=== PATIENT | female | born 1945 | race African-American/Black ===

== ENCOUNTER 2017-11-02 07:31 | Outpatient (CLI) | payer MEDICARE ==
--- NOTE | 2017-11-02 08:50 | ULT ---
RENAL SONOGRAM: History: Chronic renal disease. FINDINGS: Each kidney is 8.4 cm in length. There is no evidence of mass, stone, or hydronephrosis. Urinary blad ivonne is incompletely distended. IMPRESSION: 1. No evidence of urinary obstruction. 2. Normal renal sonogram. POS: [facility]
== END 2017-11-02 07:32 | disposition home or self-care (01) ==
LOC: ULT 07:31
PROVIDERS: ATTEND Internal Medicine Nephrology
DX: N18.4 Chronic kidney disease, stage 4 (severe) (principal)
CPT/HCPCS: 76770

== ENCOUNTER 2018-09-01 11:39 | Emergency (ER) | payer MEDICARE ==
--- NOTE | 2018-09-01 14:26 | RAD ---
TWO VIEW CHEST: History: Cough. FINDINGS: Lung gannon appear clear. No evidence of infiltrate. Heart and mediastinum unremarkable. IMPRESSION: No acute abnormality. POS: H
== END 2018-09-01 15:06 | disposition home or self-care (01) ==
LOC: ERS 11:39
DX: J20.9 Acute bronchitis, unspecified (principal); E11.9 Type 2 diabetes mellitus without complications; I10 Essential (primary) hypertension; N28.9 Disorder of kidney and ureter, unspecified
CPT/HCPCS: 71046

== ENCOUNTER 2018-12-21 14:32 | Outpatient (CLI) | payer MEDICARE ==
--- NOTE | 2018-12-21 15:04 | RAD ---
F2 views abdomen. HISTORY: Epigastric pain. Supine and upright views of the abdomen obtained. There is a patchy density seen in both lung bases compatible with bibasilar pneumonia. Correlate with PA and lateral views of the chest. The abdominal gas pattern is nonspecific. No evidence of obstruction or ileus seen. No dilated loops of bowel seen. Some areas of calcification appear to be over both kidneys. These may represent possible renal calcul i versus vascular calcifications. No dilated loops of bowel seen. No evidence of free intraperitoneal air seen. IMPRESSION: 1: Possible renal calculi versus calcifications over renal vessels. 2: Bilateral basilar areas of airspace opacities concerning for bibasilar pneumonia.
--- NOTE | 2018-12-21 15:13 | RAD ---
PA AND LATERAL VIEWS CHEST: HISTORY: Severe persistent reactive airways disease, bronchitis, dyspnea. FINDINGS: Comparison is made with the exam of 01/30/2018. The heart size is borderline. There are bibasilar infiltrates with accompanying effusions, right gre ater than left. No pneumothoraces are seen. The possibility of pneumonia should be considered. POS: [facility]
== END 2018-12-21 14:33 | disposition home or self-care (01) ==
LOC: BICRAD 14:32
PROVIDERS: ATTEND Internal Medicine
DX: J45.50 Severe persistent asthma, uncomplicated (principal); R10.13 Epigastric pain; R91.8 Other nonspecific abnormal finding of lung field
CPT/HCPCS: 71046; 74019

== ENCOUNTER 2018-12-29 20:03 | Inpatient (IN) | payer MEDICARE ==
--- NOTE | 2018-12-29 20:43 | RAD ---
ONE VIEW CHEST: 12/29/18 COMPARISON: 12/21/18 HISTORY: Patient was given antibiotics for pneumonia yesterday. Patient now having emesis. FINDINGS: Atherosclerosis of the aorta. Normal cardiac silhouette. Pulmonary vessels and hilum are normal. Impr poppy aeration of the lung parenchyma. Patchy interstitial opacities in the lung bases do remain along with areas of subsegmental atelectasis in the right lung. No pneumothorax. IMPRESSION: Improved aeration of the lung bases. Residual opacities remain. POS: [facility]
[2018-12-29] MEDS ORDERED: Ondansetron PF 4 MG/2 ML Vial ONE (21:05)
[2018-12-29 21:20] LABS: ALT (SGPT) 12 U/L (8-55); AST (SGOT) 14 U/L (5-34); Albumin 2.8 g/dL (3.4-4.8); Alkaline Phosphatase 65 U/L (40-150); Anion Gap 17 mmol/L (10-20); BUN (Urea Nitrogen) 64 mg/dL (9.8-20.1); Bilirubin, Total 0.3 mg/dL (0.2-1.2); Calc. Creatinine Clearance 0 mL/min (70-130); Carbon Dioxide 25 mmol/L (23-31); Chloride 98 mmol/L (98-107); Estimated GFR-MDRD 6; Globulin 3.6 g/dL (2.4-3.5); Glucose 205 mg/dL (83-110); Potassium 4.4 mmol/L (3.5-5.1); Protein, Total 6.4 g/dL (6.0-8.3); Sodium 136 mmol/L (136-145)
[2018-12-29 22:15] LABS: #Lymphocytes 0.6 thou/uL (1.20-3.40); #Monocytes 0.5 thou/uL (0.11-0.59); #Neutrophils 11.5 thou/uL (1.40-6.50); %Basophils 0.2 % (0.0-1.0); %Eosinophils 0.3 % (0.0-10.0); %Lymphocytes 4.9 % (21.0-51.0); %Monocytes 4.1 % (0.0-10.0); %Neutrophils 90.5 % (42.0-75.0); Hemoglobin 8.6 g/dL (12.0-16.0); Mean Corpuscular HGB CONC 31.6 g/dL (32.0-36.0); Mean Corpuscular Volume 72.8 fL (78.0-98.0); Mean Platelet Volume 11.2 fL (7.4-10.4); Platelet Count 244 thou/uL (130-400); RBC Distribution Width 15.2 % (11.5-14.5); Red Blood Cell (RBC) Count 3.72 mill/uL (4.20-5.40); White Blood Cell (WBC) Count 12.7 thou/uL (4.8-10.8)
[2018-12-29] MEDS ORDERED: hydrALAZINE 20 MG/ML VIAL ONE (22:25)
[2018-12-29] MEDS ORDERED: Aspirin Chewable 81 MG TAB ONE (22:25)
[2018-12-30 00:14] LABS: Troponin I 0.233 ng/mL (< 0.028)
[2018-12-30] MEDS ORDERED: Ondansetron PF 4 MG/2 ML Vial IVP PRN (01:19)
[2018-12-30] MEDS ORDERED: Acetaminophen 325 MG TAB PO PRN ×2 (01:19→01:27)
[2018-12-30] MEDS ORDERED: Sodium Chloride 0.9% 1,000 ML IV SCH ×2 (01:19→01:27)
[2018-12-30] MEDS ORDERED: Ondansetron ODT 4 MG TAB SL PRN (01:19)
[2018-12-30] MEDS ORDERED: Dextrose 5% in Water 1,000 ML IV PRN (01:27)
[2018-12-30] MEDS ORDERED: HumaLOG 300 UNITS/3 ML VIAL SC PRN ×2 (01:27)
[2018-12-30 01:57] VITALS: BMI 23.8
[2018-12-30] MEDS ORDERED: Furosemide 20 MG/2 ML VIAL SLOW IVP SCH (02:30)
[2018-12-30] MEDS: cloNIDine 0.1 MG TAB PO PRN ×2 (02:49→18:13)
[2018-12-30] MEDS: Sodium Chloride 0.9% 1,000 ML IV SCH ×2 (02:50→22:51)
[2018-12-30 03:22] LABS: #Basophils 0.1 thou/uL (0.0-0.2); #Eosinphils 0.2 thou/uL (0.0-0.7); #Lymphocytes 1.2 thou/uL (1.20-3.40); #Monocytes 0.6 thou/uL (0.11-0.59); #Neutrophils 9.6 thou/uL (1.40-6.50); %Basophils 0.6 % (0.0-1.0); %Eosinophils 1.7 % (0.0-10.0); %Lymphocytes 10.1 % (21.0-51.0); %Monocytes 5.2 % (0.0-10.0); %Neutrophils 82.5 % (42.0-75.0); Mean Corpuscular HGB CONC 32.1 g/dL (32.0-36.0); Mean Corpuscular Hemoglobin 23.1 pg (27.0-31.0); Mean Corpuscular Volume 72.1 fL (78.0-98.0); Platelet Count 236 thou/uL (130-400); RBC Distribution Width 14.8 % (11.5-14.5); Red Blood Cell (RBC) Count 3.44 mill/uL (4.20-5.40); White Blood Cell (WBC) Count 11.7 thou/uL (4.8-10.8)
--- NOTE | 2018-12-30 03:36 | HP ---
PRIMARY CARE PHYSICIAN: Vincent Wynne MD CHIEF COMPLAINT: Diarrhea. HISTORY OF PRESENT ILLNESS: Ms. Mcclain is a pleasant 73-year-old female, who has a history of hypertension, diabetes mellitus, and chronic kidney disease. She says that about a week ago, on last Wednesday, she was having some tightness in her epigastric area as well as decrease in appetite. Her primary care physician sent her to get x-rays of her abdomen. She says they called her back and told her that she has a pneumonia and called in two antibiotics for her to take, doxycycline and Augmentin. She says after taking just one dose of the antibiotics, she started having vomiting and diarrhea. She says that she had at least 4 to 5 episodes a day. This started around 3:00 a.m. in the morning. She also said she had some subjective fever and sweating at night. When she arrived in the emergency room , it was found that her blood pressure was extremely high at 234/102, and that her creatinine had gone up from a baseline of about 3, up to 7.7, and she also had an elevated troponin as well and for this reason, she is being admitted to the hospital. She admits that she has had a poor appetite for some time and she states that her combination technician, Dr. Kent, had began talking to her about the possible need for dialysis. The patient also states that her blood pressure typically always runs high despite being on medications. REVIEW OF SYSTEMS: All systems were reviewed and are negative except for that mentioned in the history of present illness. PAST MEDICAL HISTORY: Significant for diabetes mellitus for 47 years and she has type 1; hypertension for 20 years. She is anemic. She says she has a heart murmur and chronic kidney disease stage 4. PAST SURGICAL HISTORY: She has had a hysterectomy and foot surgery. ALLERGIES: TO PENICILLIN AND VICTOZA. SOCIAL HISTORY: She is . She has one child, a son, who lives in [place]. She is a nonsmoker and nondrinker. She lives by herself and her niece, Analilia, can act as a surrogate decision maker in addition to her son and she would like to be a full code. FAMILY HISTORY: Significant for diabetes mellitus type 2, heart disease, and hypertension. MEDICATIONS: Include; 1. Doxycycline. 2. Augmentin. 3. B12. 4. Vitamin D3. 5. NovoLog insulin on a sliding scale. 6. Lantus insulin 10 units in the morning, 5 in the evening. 7. Hydrochlorothiazide 12.5 mg daily. 8. Metoprolol extended release 50 mg daily. 9. Aspirin 81 mg a day. PHYSICAL EXAMINATION: GENERAL: She is alert and oriented. She appears to be in no acute distress. She is well developed and well nourished. VITAL SIGNS: Her blood pressure was 234/102, heart rate 93, respiratory rate of 20, and temperature is 99.5. HEENT: Her pupils are equal, round, and reactive. Extraocular muscles are intact. Her sclerae are anicteric. Throat, there is no erythema. No exudates. NECK: No adenopathy. No bruits. LUNGS: Clear to auscultation. There was no wheezing. No rales. No rhonchi. CARDIOVASCULAR: She has a normal S1, S2. A slight grade 2/6 systolic murmur over most of the precordium. No S3 or S4. ABDOMEN: Obese, it is soft, it is nontender, and nondistended. Positive for bowel sounds. No rebound or guarding. No organomegaly. EXTREMITIES: There is no clubbing or cyanosis. No edema. No joint effusions or erythema. NEUROLOGIC: Her cranial nerves 2 through 12 are grossly intact and muscle strength is 5/5 in her upper and lower extremities. SKIN AND INTEGUMENT: There are no skin changes except on her legs, the skin did seem a bit more leathery than the upper extremity and a bit dry. LABORATORY DATA: The lab results, the sodium is 136, potassium 4.4, chloride is 98, CO2 is 25, BUN of 64, creatinine of 7.7, glucose is 205. White blood cell count is 12.7, hemoglobin 8.6, hematocrit is 27.1, and platelet count was 244. She had a chest x-ray and it showed some cardiomegaly, some fluid in the fissures on the right, or this may be a scarring, but no significant airspace disease. ASSESSMENT: This is a pleasant 73-year-old female, who presents to the emergency room with diarrhea and vomiting, this is likely a side effect of the antibiotics ; however, this has left her with what appears to be some volume depletion resulting in acute renal failure. She is also noted to have an extremely elevated blood pressure as well as an elevated troponin, and it is concerning that the troponin elevation could represent an non-ST elevation myocardial infarction and her epigastric pain that she had several days ago may have been an anginal equivalent. 1. For the acute kidney injury, we will place her on gentle hydration, check urine electrolytes, and consult her combination technician for further recommendations. 2. Hypertensive urgency. We will restart her usual home medications plus add p.r.n. medicine, and likely we will add clonidine to her regimen. 3. Elevated troponin or non-ST elevation myocardial infarction. We will place her on some nitrates, aspirin, and continue her beta-danita, and consult Cardiology for further recommendations. We will also get an echocardiogram to assess her LV function. 4. Diabetes mellitus. Restart her insulin as well as the sliding scale. 5. Diarrhea. Will check stool for C. Difficile and Campylobacter. However again this is likely from antibiotics, especially Augmentin. Job ID: [id number] MTDD
[2018-12-30 03:45] LABS: Anion Gap 16 mmol/L (10-20); BUN (Urea Nitrogen) 65 mg/dL (9.8-20.1); Calc. Creatinine Clearance 6 mL/min (70-130); Calcium 6.8 mg/dL (7.8-10.44); Carbon Dioxide 24 mmol/L (23-31); Cardiac Risk 3.6 (Less than 4.5); Chloride 101 mmol/L (98-107); Cholesterol 164 mg/dl (< 200 Desired); Estimated GFR-MDRD 7; Glucose 147 mg/dL (83-110); HDL Cholesterol 46 mg/dL (>60 Neg Risk); LDL Cholesterol, Calculated 94 mg/dL; Potassium 3.9 mmol/L (3.5-5.1); Sodium 137 mmol/L (136-145); Triglycerides 119 mg/dL (Less than 150); Troponin I 0.179 ng/mL (< 0.028)
[2018-12-30] MEDS: Nitroglycerin 2% Ointment 1 INCH/1 GM Packet TOP SCH ×3 (05:25→21:02)
[2018-12-30] MEDS: hydrALAZINE 25 MG TAB PO SCH ×3 (08:25→21:01)
[2018-12-30] MEDS: Aspirin 325 mg Enteric Coated Tablet PO SCH (08:26)
[2018-12-30] MEDS: Heparin 5,000 UNITS/ML VIAL SC SCH ×3 (08:26→21:00)
[2018-12-30] MEDS: Metoprolol Tartrate 100 MG TAB PO SCH ×2 (08:26→21:01)
[2018-12-30] MEDS: Famotidine 20 MG TAB PO SCH (08:26)
[2018-12-30] MEDS: Furosemide 40 MG TAB PO SCH (08:26)
[2018-12-30] MEDS: Insulin Glargine 10 UNITS in Pre-Filled Syringe 1 EACH SC SCH (08:54)
--- NOTE | 2018-12-30 10:27 | CON ---
DATE OF CONSULTATION: REASON FOR CONSULTATION: Type 2 myocardial infarction. HISTORY OF PRESENT ILLNESS: Ms. Mcclain is a 73-year-old woman who recently presented with nausea, vomiting, in addition to fevers and chills. She states it began yesterday. She had 5 to 6 episodes of diarrhea. She again had associated vomiting. No chest tightness, pressure, or associated symptoms. She gives a history of having diabetes for the last 47 years. She has been followed by Dr. Wynne, her primary provider. [facility] a markedly elevated creatinine of 7. It was recommended that she proceed to the emergency room for volume resuscitation. She also had a mildly elevated troponin, likely due to current insult as described above. PAST MEDICAL HISTORY: Hypertension, diabetes mellitus, anemia, previous chronic kidney disease. ALLERGIES: PENICILLIN AND VICTOZA. SOCIAL HISTORY: She is currently , one child. No current tobacco or alcohol use. SURGICAL HISTORY: Hysterectomy, foot surgery. HOME MEDICATIONS: Include, 1. Augmentin. 2. Doxycycline. 3. B12. 4. NovoLog. 5. Lantus. 6. Hydrochlorothiazide. 7. Metoprolol. 8. Aspirin. REVIEW OF SYSTEMS: A 10-point review of systems is reviewed and as above, otherwise negative. PHYSICAL EXAMINATION: GENERAL: She does appear somewhat edematous. VITAL SIGNS: Blood pressure 188/88, pulse 92, temperature 99.8. NEUROLOGIC: The patient is alert and oriented x3 with no focal neurologic deficits. HEENT: Sclerae without icterus. Mouth has moist mucous membranes with normal pallor. NECK: No JVD. Carotid upstroke brisk. No bruits bilaterally. LUNGS: Clear to auscultation with unlabored respirations. BACK: No scoliosis or kyphosis. CARDIAC: Regular rate and rhythm with normal S1 and S2. No S3 or S4 noted. No significant rubs, murmurs, thrills, or gallops noted throughout the precordium. PMI is not displaced. There is no parasternal heave. ABDOMEN: Soft, nontender, nondistended. No peritoneal signs present. No hepatosplenomegaly. No abnormal striae. EXTREMITIES: 2+ femoral and 2+ dorsalis pedis pulses. No cyanosis, clubbing, or edema. SKIN: No gross abnormalities. PERTINENT LABORATORY DATA: White blood cell count 11.7, hemoglobin 8.0, hematocrit 24.8. . Sodium 137, potassium 3.9, BUN 65, creatinine 7.4. GFR 7. Peak troponin 0.2. Albumin 2.8, globulin 3.6. IMPRESSION: 1. Nausea, vomiting, diarrhea. 2. Type 2 myocardial infarction. 3. Acute on chronic kidney disease. 4. Recent fevers, chills. RECOMMENDATIONS: Ms. Mcclain's elevated troponin is secondary to type 2 myocardial infarction. This is not felt to be due to a ruptured plaque. At this point, recommend conservative therapy. She will be hydrated. Nephrology has been consulted. We would recommend reviewing her echo. If her echo appears to be within normal limits, we would likely follow up as an outpatient for further recommendations. We will avoid GAURAV inhibitor therapy and ARB. May benefit from low-dose beta-danita therapy. It is unlikely she has had a primary cardiac event with underlying fevers, chills, nausea, vomiting, and diarrhea. Job ID: [id number]
[2018-12-30 10:29] LABS: Creatinine, Urine 31.12 mg/dL (47-110)
--- NOTE | 2018-12-30 11:30 | ULT ---
RENAL ULTRASOUND: HISTORY: Acute renal insufficiency. FINDINGS: Real-time imaging of the right and left kidneys shows that the right kidney measured 9.5 and the left kidney 9.1 cm in size. No signs of cysts, mass, or obstruction. The bladder region appears unremarkable. IMPRESSION: Unremarkable renal ultrasound. POS: [facility]
--- NOTE | 2018-12-30 19:32 | PDOC.PN ---
- Subjective Encounter Start Date: 12/30/18 Encounter Start Time: 14:00 Pt seen for followup re: acute on chronic stage 4 kidney disease. Feels better. Denies chest pain. No vomiting. - Objective Resuscitation Status - Order Detail: 12/30/18 01:03 Resuscitation Status Routine Resuscitation Status: FULL: Full Resuscitation MAR Reviewed: Yes Vital Signs & Weight: Vital Signs (12 hours) Temp Pulse Resp BP BP Pulse Ox 12/30/18 18:13 189/88 H 12/30/18 16:00 98.9 F 72 17 189/88 H 98 12/30/18 14:10 76 186/88 H 12/30/18 12:00 98.0 F 76 18 170/84 H 99 12/30/18 08:25 94 12/30/18 08:00 99.8 F H 92 17 188/88 H 97 12/30/18 07:54 97 Weight Weight 130 lb 9.6 oz I&O: 12/29/18 12/30/18 12/31/18 06:59 06:59 06:59 Intake Total 405 1030 Output Total 800 Balance 405 230 Result Diagrams: 12/30/18 03:07 12/30/18 03:07 Additional Labs: Accuchecks 12/30/18 12/30/18 10:58 05:24 POC Glucose 159 H 151 H EKG Reviewed by me: Yes (Tele: NSR) Phys Exam - Physical Examination Constitutional: NAD HEENT: sclera anicteric, oral pharynx no lesions, 2+ tonsils Dry mucosae Neck: no nodes, no JVD, supple, full ROM Respiratory: clear to auscultation bilateral Cardiovascular: RRR, no rub S1, S2 Gastrointestinal: soft, non-tender, no distention, positive bowel sounds Neurological: moves all 4 limbs Psychiatric: normal affect, A&O x 3 Dx/Plan (1) Acute worsening of stage 4 chronic kidney disease Code(s): N18.4 - CHRONIC KIDNEY DISEASE, STAGE 4 (SEVERE) Status: Acute Comment: Likely prerenal. Hydrate patient, recheck (2) nstemi type 2 Status: Acute Comment: appreciate cardiology service input (3) HTN (hypertension) Code(s): I10 - ESSENTIAL (PRIMARY) HYPERTENSION Status: Chronic Comment: monitor vital signs, titrate antihypertensives as needed (4) DM type 2 (diabetes mellitus, type 2) Status: Chronic Comment: continue accuchecks, insulin sliding scale - Plan * . Review of Systems - Review of Systems Constitutional: negative: fever, chills, sweats, weakness, malaise Respiratory: negative: Cough, Shortness of Breath, SOB with Excertion, Pleuritic Pain, Wheezing Cardiovascular: negative: chest pain, palpitations, orthopnea, paroxysmal nocturnal dyspnea, edema, light headedness Gastrointestinal: Nausea. negative: Vomiting, Abdominal Pain, Diarrhea, Constipation, Melena, Hematochezia Genitourinary: negative: Dysuria, Frequency, Incontinence, Hematuria, Retention Musculoskeletal: negative: Neck Pain, Shoulder Pain, Arm Pain, Back Pain, Hand Pain, Leg Pain, Foot Pain - Medications/Allergies Allergies/Adverse Reactions: Allergies Allergy/AdvReac Type Severity Reaction Status Date / Time liraglutide [From Victoza] Allergy Verified 12/30/18 01:32 Penicillins Allergy Verified 12/30/18 01:32 Medications: Current Medications Acetaminophen (Tylenol) 650 mg PO Q4H PRN PRN Reason: Headache/Fever/Mild Pain (1-3) Aspirin (Ecotrin) 325 mg PO DAILY [facility] Last Admin: 12/30/18 08:26 Dose: 325 mg Clonidine (Catapres) 0.1 mg PO Q4H PRN PRN Reason: SBP > ____ Last Admin: 12/30/18 18:13 Dose: 0.1 mg Dextrose/Water (Dextrose 50%) 25 gm SLOW IVP PRN PRN PRN Reason: Hypoglycemia Famotidine (Pepcid) 20 mg PO DAILY [facility] Last Admin: 12/30/18 08:26 Dose: 20 mg Furosemide (Lasix) 40 mg PO DAILY [facility] Last Admin: 12/30/18 08:26 Dose: 40 mg Glucagon (Glucagon) 1 mg IM PRN PRN PRN Reason: Hypoglycemia Heparin Sodium (Porcine) (Heparin) 5,000 units SC TID [facility] Last Admin: 12/30/18 14:11 Dose: 5,000 units Hydralazine HCl (Apresoline) 10 mg SLOW IVP Q4H PRN PRN Reason: SBP > 180 and HR < 70 Hydralazine HCl (Apresoline) 25 mg PO TID [facility] Last Admin: 12/30/18 14:10 Dose: 25 mg Dextrose/Water (D5w) 1,000 mls @ 0 mls/hr IV .Q0M PRN PRN Reason: Hypoglycemia Sodium Chloride (Normal Saline 0.9%) 1,000 mls @ 55 mls/hr IV .[id number] [facility] Last Admin: 12/30/18 02:50 Dose: 1,000 mls Insulin Glargine 5 units/ (Miscellaneous Medication) 0.05 mls @ 0 mls/hr SC HS [facility] Insulin Glargine 10 units/ (Miscellaneous Medication) 0.1 mls @ 0 mls/hr SC QAM -WM [facility] Last Admin: 12/30/18 08:54 Dose: 0.1 mls Insulin Human Lispro (Humalog) 0 units SC .MODERATE SLIDING SC PRN PRN Reason: Moderate Correctional Scale Insulin Human Lispro (Humalog) 0 units SC .BEDTIME SLIDING SC PRN PRN Reason: Bedtime Correctional Scale Metoprolol Tartrate (Lopressor) 100 mg PO BID [facility] Last Admin: 12/30/18 08:26 Dose: 100 mg Nitroglycerin (Nitro-Bid 2% Ointment) 0.5 inch TOP Q8HR [facility] Last Admin: 12/30/18 14:11 Dose: 0.5 inch Sodium Chloride (Flush - Normal Saline) 10 ml IVF Q12HR [facility] Last Admin: 12/30/18 08:26 Dose: Not Given Sodium Chloride (Flush - Normal Saline) 10 ml IVF PRN PRN PRN Reason: Saline Flush
[2018-12-30] MEDS ORDERED: Insulin Glargine 5 UNITS in Pre-Filled Syringe 1 EACH SC SCH (21:00)
--- NOTE | 2018-12-30 22:05 | CON ---
DATE OF CONSULTATION: 12/30/2018 CONSULTING PHYSICIAN: Kervin Macedo MD REASON FOR CONSULTATION: Acute kidney injury. REASON FOR ADMISSION: Diarrhea. HISTORY OF PRESENT ILLNESS: This is a 73-year-old female with history of chronic kidney disease, type 2 diabetes, hypertension, who came to the hospital with above complaints and was found to have elevated creatinine. Her creatinine baseline is at 3.2 and 3.8 and was found to have 7.7. Nephrology consulted. The patient is followed by Dr. Kent. No fevers or chills. The patient has been complaining of nausea, vomiting, and diarrhea. No chest pain or palpitation. PAST MEDICAL HISTORY: Type 2 diabetes, hypertension, chronic kidney disease. PAST SURGICAL HISTORY: Hysterectomy, foot surgery. HOME MEDICATIONS: 1. Doxycycline. 2. Augmentin. 3. B12. 4. Vitamin D3. 5. NovoLog. 6. Lantus. 7. Hydrochlorothiazide. 8. Metoprolol. 9. Aspirin. ALLERGIES: PENICILLIN AND LIRAGLUTIDE. FAMILY HISTORY: No significant disease. REVIEW OF SYSTEMS: CONSTITUTIONAL: Negative for weight loss or gain, ability to conduct usual activities. SKIN: Negative for rash, itching. EYES: Negative for double vision, pain. ENT/MOUTH: Negative for nose bleeding, neck stiffness, pain, tenderness. CARDIOVASCULAR: Negative for palpitations, dyspnea on exertion, orthopnea. RESPIRATORY: Negative for shortness of breath, wheezing, cough, hemoptysis, fever or night sweats. GASTROINTESTINAL: Negative for poor appetite, abdominal pain, heartburn, nausea, vomiting, constipation, or diarrhea. GENITOURINARY: Negative for urgency, frequency, dysuria, nocturia. MUSCULOSKELETAL: Negative for pain, swelling. NEUROLOGIC/PSYCHIATRIC: Negative for anxiety, depression. ALLERGY/IMMUNOLOGIC: Negative for skin rash, bleeding tendency. PHYSICAL EXAMINATION: GENERAL: A well-built female, in no apparent distress. VITAL SIGNS: Temperature 98.5, pulse 75, respiratory rate 18, blood pressure 170/84. HEENT: Atraumatic, normocephalic. Oral mucosa is moist. NECK: Supple. CV: S1 and S2 heard. Rate and rhythm regular. RESPIRATORY: Clear. ABDOMEN: Soft. MUSCULOSKELETAL: 1+ edema. DERMATOLOGIC: No skin rash. NEUROLOGIC: Alert and awake. LABORATORY DATA: Hemoglobin is 8.0. Potassium is 3.9, BUN is 65, creatinine 7.4. Renal ultrasound with no hydronephrosis. Urinalysis, severe proteinuria. ASSESSMENT AND PLAN: 1. Acute kidney injury on chronic kidney disease stage 4. No acute indication for dialysis. We will monitor. Agree with hydration and avoid nephrotoxins. If no improvement, might need start renal replacement. Patient is interested in peritoneal dialysis at home. 2. Anemia, most likely chronic. 3. Edema. 4. Hypertension. 5. Proteinuria. 6. History of diabetes. 7. Continue supportive care including IV hydration, avoid nephrotoxins, and no acute indication for dialysis, but if no significant improvement in renal function, we will consider renal replacement therapy to be initiated during this admission. Thank you for the consult. We will follow. Job ID: [id number]
[2018-12-31] MEDS: Sodium Chloride 0.9% 1,000 ML IV SCH (03:19)
[2018-12-31] MEDS: cloNIDine 0.1 MG TAB PO PRN ×2 (03:46→20:01)
[2018-12-31] MEDS: Dextrose 50% Abboject 50 ML SYRINGE SLOW IVP PRN (05:00)
[2018-12-31] MEDS: Nitroglycerin 2% Ointment 1 INCH/1 GM Packet TOP SCH (05:09)
[2018-12-31] MEDS: hydrALAZINE 20 MG/ML VIAL SLOW IVP PRN (05:57)
[2018-12-31] MEDS: Aspirin 325 mg Enteric Coated Tablet PO SCH (09:33)
[2018-12-31] MEDS: Famotidine 20 MG TAB PO SCH (09:33)
[2018-12-31] MEDS: Furosemide 40 MG TAB PO SCH (09:33)
[2018-12-31] MEDS: hydrALAZINE 25 MG TAB PO SCH ×3 (09:33→20:02)
[2018-12-31] MEDS: Heparin 5,000 UNITS/ML VIAL SC SCH ×3 (09:33→20:06)
[2018-12-31] MEDS: Metoprolol Tartrate 100 MG TAB PO SCH ×2 (09:33→20:02)
[2018-12-31] MEDS: Insulin Glargine 10 UNITS in Pre-Filled Syringe 1 EACH SC SCH (09:33)
--- NOTE | 2018-12-31 11:18 | PRG ---
DATE OF SERVICE: 12/31/2018 SUBJECTIVE: Patient was seen and examined at bedside and overnight events noted. Patient denies any shortness of breath or chest pain or palpitation. No history of nausea or vomiting or diarrhea or fever or chills or cramps. OBJECTIVE: GENERAL: This is a well-built female, in no acute distress. VITAL SIGNS: Temperature 97.9. Heart rate 67. Respiratory rate 18. Blood pressure 162/73. HEENT: Atraumatic, normocephalic. Oral mucosa is moist NECK: Supple. CARDIOVASCULAR: S1, S2 heard. Rate and rhythm regular. RESPIRATORY: Clear to auscultation. GASTROINTESTINAL: Abdomen is soft. MUSCULOSKELETAL: No tenderness. No edema. DERMATOLOGIC: No skin rash. NEUROLOGIC: Alert and awake and oriented X3. No focal neurologic deficits. Moving all the extremities. PSYCHIATRIC: Mood and affect normal. LABORATORY DATA: Not done today. ASSESSMENT AND PLAN: 1. Acute kidney injury on chronic kidney, stage 4. Repeat labs and monitor. 2. Anemia, chronic. 3. Edema. Limit fluid intake. 4. Hypertension. 5. Proteinuria. 6. History of diabetes. Immunological labs are pending. We will monitor. Job ID: [id number]
[2018-12-31 12:42] LABS: #Basophils 0.1 thou/uL (0.0-0.2); #Eosinphils 0.2 thou/uL (0.0-0.7); #Lymphocytes 1.3 thou/uL (1.20-3.40); #Monocytes 0.5 thou/uL (0.11-0.59); #Neutrophils 4.7 thou/uL (1.40-6.50); %Basophils 1.3 % (0.0-1.0); %Eosinophils 2.5 % (0.0-10.0); %Lymphocytes 19.6 % (21.0-51.0); %Monocytes 7.3 % (0.0-10.0); %Neutrophils 69.3 % (42.0-75.0); Hemoglobin 7.3 g/dL (12.0-16.0); Mean Corpuscular HGB CONC 31.7 g/dL (32.0-36.0); Mean Corpuscular Hemoglobin 23.2 pg (27.0-31.0); Mean Corpuscular Volume 73.2 fL (78.0-98.0); Platelet Count 221 thou/uL (130-400); Red Blood Cell (RBC) Count 3.15 mill/uL (4.20-5.40); White Blood Cell (WBC) Count 6.7 thou/uL (4.8-10.8)
[2018-12-31] MEDS ORDERED: Amlodipine 5 MG TAB PO SCH (13:00)
[2018-12-31 13:07] LABS: Anion Gap 17 mmol/L (10-20); BUN (Urea Nitrogen) 67 mg/dL (9.8-20.1); Calc. Creatinine Clearance 7 mL/min (70-130); Calcium 6.7 mg/dL (7.8-10.44); Carbon Dioxide 20 mmol/L (23-31); Chloride 102 mmol/L (98-107); Estimated GFR-MDRD 7; Glucose 131 mg/dL (83-110); Sodium 135 mmol/L (136-145)
--- NOTE | 2018-12-31 13:21 | PDOC.CTH ---
Cardiology Progress Note - Subjective No complaints. Denies any CP, SOB, MORALES or palpitations. - Objective Vital Signs Temp Pulse Resp BP BP Pulse Ox 12/31/18 12:00 98.1 F 66 161/72 H 97 12/31/18 09:33 68 12/31/18 08:00 97.8 F 67 18 162/73 H 96 12/31/18 06:35 68 174/79 H 12/31/18 05:57 64 179/84 H 12/31/18 05:13 67 177/78 H 12/31/18 04:00 98.4 F 69 20 193/84 H 97 12/31/18 03:46 193/84 H Weight 137 lb 8 oz 12/30/18 12/31/18 01/01/19 06:59 06:59 06:59 Intake Total 405 2090 Output Total 1250 Balance 405 840 - Physical Examination General/Neuro: alert & oriented x3 Neck: no JVD present Lungs: CTA Heart: RRR Abdomen: NT/ND - Telemetry Telemetry Rhythm: SR - Labs Result Diagrams: 12/31/18 12:27 12/31/18 12:27 Troponin/CKMB CK-MB (CK-2) 3.0 ng/mL (0-6.6) 12/29/18 20:40 Troponin I 0.179 ng/mL (< 0.028) H 12/30/18 03:07 - Assessment/Plan 1. NSTEMI - 2 2. JESUS/CKD 3. HTN 4. Anemia of chronic disease Add Norvasc for BP. Continue bblocker and ASA.
--- NOTE | 2018-12-31 13:35 | PDOC.PN ---
- Subjective Encounter Start Date: 12/31/18 Encounter Start Time: 08:00 Pt seen for followup re: acute on chronic renal failure. No complaints today. - Objective Resuscitation Status - Order Detail: 12/30/18 01:03 Resuscitation Status Routine Resuscitation Status: FULL: Full Resuscitation Vital Signs & Weight: Vital Signs (12 hours) Temp Pulse Resp BP BP Pulse Ox 12/31/18 12:00 98.1 F 66 161/72 H 97 12/31/18 09:33 68 12/31/18 08:00 97.8 F 67 18 162/73 H 96 12/31/18 06:35 68 174/79 H 12/31/18 05:57 64 179/84 H 12/31/18 05:13 67 177/78 H 12/31/18 04:00 98.4 F 69 20 193/84 H 97 12/31/18 03:46 193/84 H Weight Weight 137 lb 8 oz I&O: 12/30/18 12/31/18 01/01/19 06:59 06:59 06:59 Intake Total 405 2090 Output Total 1250 Balance 405 840 Result Diagrams: 12/31/18 12:27 12/31/18 12:27 Additional Labs: Accuchecks 12/31/18 12/31/18 12/31/18 11:16 05:17 05:01 POC Glucose 123 H 233 H 48 L* 12/31/18 12/30/18 03:51 20:26 POC Glucose 44 L* 163 H Phys Exam - Physical Examination Constitutional: NAD HEENT: moist MMs Neck: supple Respiratory: clear to auscultation bilateral Cardiovascular: RRR Gastrointestinal: soft Neurological: moves all 4 limbs Psychiatric: normal affect Dx/Plan (1) Acute worsening of stage 4 chronic kidney disease Code(s): N18.4 - CHRONIC KIDNEY DISEASE, STAGE 4 (SEVERE) Status: Acute Comment: creatinine stabilizing, 7.45 today (2) nstemi type 2 Status: Acute Comment: stable (3) HTN (hypertension) Code(s): I10 - ESSENTIAL (PRIMARY) HYPERTENSION Status: Chronic Comment: amlodipine added today (4) DM type 2 (diabetes mellitus, type 2) Status: Chronic Comment: overnight hypoglycemia, stop PM dose of lantus and follow accuchecks - Plan * . Review of Systems - Review of Systems Respiratory: negative: Cough, Shortness of Breath, SOB with Excertion, Pleuritic Pain, Wheezing Cardiovascular: negative: chest pain, palpitations, orthopnea, paroxysmal nocturnal dyspnea, edema, light headedness - Medications/Allergies Allergies/Adverse Reactions: Allergies Allergy/AdvReac Type Severity Reaction Status Date / Time liraglutide [From Victoza] Allergy Verified 12/30/18 01:32 Penicillins Allergy Verified 12/30/18 01:32 Medications: Current Medications Acetaminophen (Tylenol) 650 mg PO Q4H PRN PRN Reason: Headache/Fever/Mild Pain (1-3) Amlodipine Besylate (Norvasc) 5 mg PO DAILY [facility] Amlodipine Besylate (Norvasc) 5 mg PO NOW [facility] Stop: 12/31/18 16:00 Aspirin (Ecotrin) 325 mg PO DAILY [facility] Last Admin: 12/31/18 09:33 Dose: 325 mg Clonidine (Catapres) 0.1 mg PO Q4H PRN PRN Reason: SBP > ____ Last Admin: 12/31/18 03:46 Dose: 0.1 mg Dextrose/Water (Dextrose 50%) 25 gm SLOW IVP PRN PRN PRN Reason: Hypoglycemia Last Admin: 12/31/18 05:00 Dose: 25 gm Famotidine (Pepcid) 20 mg PO DAILY [facility] Last Admin: 12/31/18 09:33 Dose: 20 mg Furosemide (Lasix) 40 mg PO DAILY [facility] Last Admin: 12/31/18 09:33 Dose: 40 mg Glucagon (Glucagon) 1 mg IM PRN PRN PRN Reason: Hypoglycemia Heparin Sodium (Porcine) (Heparin) 5,000 units SC TID [facility] Last Admin: 12/31/18 09:33 Dose: 5,000 units Hydralazine HCl (Apresoline) 10 mg SLOW IVP Q4H PRN PRN Reason: SBP > 180 and HR < 70 Last Admin: 12/31/18 05:57 Dose: 10 mg Hydralazine HCl (Apresoline) 25 mg PO TID [facility] Last Admin: 12/31/18 09:33 Dose: 25 mg Dextrose/Water (D5w) 1,000 mls @ 0 mls/hr IV .Q0M PRN PRN Reason: Hypoglycemia Sodium Chloride (Normal Saline 0.9%) 1,000 mls @ 55 mls/hr IV .[id number] [facility] Last Admin: 12/31/18 03:19 Dose: 1,000 mls Insulin Glargine 5 units/ (Miscellaneous Medication) 0.05 mls @ 0 mls/hr SC HS [facility] Last Admin: 12/30/18 21:02 Dose: 0.05 mls Insulin Glargine 10 units/ (Miscellaneous Medication) 0.1 mls @ 0 mls/hr SC QAM -WM [facility] Last Admin: 12/31/18 09:33 Dose: Not Given Insulin Human Lispro (Humalog) 0 units SC .MODERATE SLIDING SC PRN PRN Reason: Moderate Correctional Scale Insulin Human Lispro (Humalog) 0 units SC .BEDTIME SLIDING SC PRN PRN Reason: Bedtime Correctional Scale Metoprolol Tartrate (Lopressor) 100 mg PO BID [facility] Last Admin: 12/31/18 09:33 Dose: 100 mg Sodium Chloride (Flush - Normal Saline) 10 ml IVF Q12HR [facility] Last Admin: 12/31/18 09:34 Dose: Not Given Sodium Chloride (Flush - Normal Saline) 10 ml IVF PRN PRN PRN Reason: Saline Flush
[2019-01-01] MEDS: cloNIDine 0.1 MG TAB PO PRN ×2 (01:32→20:24)
[2019-01-01 05:09] LABS: #Basophils 0.1 thou/uL (0.0-0.2); #Eosinphils 0.3 thou/uL (0.0-0.7); #Lymphocytes 1.6 thou/uL (1.20-3.40); #Monocytes 0.5 thou/uL (0.11-0.59); #Neutrophils 4.3 thou/uL (1.40-6.50); %Basophils 1.4 % (0.0-1.0); %Eosinophils 4.2 % (0.0-10.0); %Lymphocytes 24.1 % (21.0-51.0); %Monocytes 6.9 % (0.0-10.0); %Neutrophils 63.4 % (42.0-75.0); Hemoglobin 6.9 g/dL (12.0-16.0); Mean Corpuscular HGB CONC 31.6 g/dL (32.0-36.0); Mean Corpuscular Hemoglobin 23.3 pg (27.0-31.0); Mean Corpuscular Volume 73.8 fL (78.0-98.0); Mean Platelet Volume 11.3 fL (7.4-10.4); Platelet Count 227 thou/uL (130-400); RBC Distribution Width 14.8 % (11.5-14.5); Red Blood Cell (RBC) Count 2.95 mill/uL (4.20-5.40); White Blood Cell (WBC) Count 6.7 thou/uL (4.8-10.8)
[2019-01-01 05:29] LABS: Anion Gap 17 mmol/L (10-20); BUN (Urea Nitrogen) 66 mg/dL (9.8-20.1); Calc. Creatinine Clearance 7 mL/min (70-130); Calcium 6.4 mg/dL (7.8-10.44); Carbon Dioxide 18 mmol/L (23-31); Chloride 101 mmol/L (98-107); Estimated GFR-MDRD 7; Glucose 96 mg/dL (83-110); Sodium 132 mmol/L (136-145)
[2019-01-01] MEDS: Sodium Chloride 0.9% 1,000 ML IV SCH (06:40)
[2019-01-01] MEDS: Metoprolol Tartrate 100 MG TAB PO SCH ×2 (08:21→20:24)
[2019-01-01] MEDS: Heparin 5,000 UNITS/ML VIAL SC SCH ×3 (08:21→20:26)
[2019-01-01] MEDS: Famotidine 20 MG TAB PO SCH (08:21)
[2019-01-01] MEDS: Aspirin 325 mg Enteric Coated Tablet PO SCH (08:21)
[2019-01-01] MEDS: Furosemide 40 MG TAB PO SCH (08:21)
[2019-01-01] MEDS: hydrALAZINE 25 MG TAB PO SCH ×3 (08:21→20:25)
[2019-01-01] MEDS: Insulin Glargine 10 UNITS in Pre-Filled Syringe 1 EACH SC SCH (08:22)
[2019-01-01] MEDS ORDERED: Amlodipine 5 MG TAB PO SCH (09:00)
--- NOTE | 2019-01-01 10:59 | PDOC.CTH ---
Cardiology Progress Note - Subjective No overnight events. No CP, SOB. Breathing stable. - Objective Vital Signs Temp Pulse Resp BP BP Pulse Ox 01/01/19 08:21 65 01/01/19 08:00 98.1 F 64 18 178/81 H 97 01/01/19 07:42 97 01/01/19 04:45 98.0 F 65 20 161/73 H 99 01/01/19 01:32 178/80 H 01/01/19 00:05 98.1 F 64 16 178/80 H 96 Weight 136 lb 11.2 oz 12/31/18 01/01/19 01/02/19 06:59 06:59 06:59 Intake Total 2090 2253 Output Total 1250 400 Balance 840 1853 - Physical Examination General/Neuro: alert & oriented x3 Neck: no JVD present Lungs: CTA Heart: RRR Abdomen: NT/ND - Telemetry Telemetry Rhythm: SR - Labs Result Diagrams: 01/01/19 04:35 01/01/19 04:35 Troponin/CKMB CK-MB (CK-2) 3.0 ng/mL (0-6.6) 12/29/18 20:40 Troponin I 0.179 ng/mL (< 0.028) H 12/30/18 03:07 - Assessment/Plan 1. NSTEMI - 2 2. JESUS/CKD 3. HTN 4. Anemia of chronic disease Increase Norvasc to BID. Otherwise continue ASA, bblocker.
--- NOTE | 2019-01-01 12:03 | PRG ---
DATE OF SERVICE: 01/01/2019 SUBJECTIVE: Patient was seen and examined at bedside and overnight events noted. Patient denies any shortness of breath or chest pain or palpitation. No history of nausea or vomiting or diarrhea or fever or chills or cramps. OBJECTIVE: GENERAL: This is a well-built female, in no acute distress. VITAL SIGNS: Temperature . Heart rate 64. Respiratory rate 18. Blood pressure 170/81. HEENT: Atraumatic, normocephalic. Oral mucosa is moist. NECK: Supple. CARDIOVASCULAR: S1, S2 heard. Rate and rhythm regular. RESPIRATORY: Clear to auscultation. GASTROINTESTINAL: Abdomen is soft. MUSCULOSKELETAL: No tenderness. No edema. DERMATOLOGIC: No skin rash. NEUROLOGIC: Alert and awake and oriented x3. No focal neurologic deficits. Moving all the extremities. PSYCHIATRIC: Mood and affect normal. LABORATORY DATA: Potassium is 4.0, BUN is 66, and creatinine is 7.2. ASSESSMENT AND PLAN: 1. Chronic kidney disease, stage 5, with no significant improvement. It seems like the patient is progressing towards dialysis. I did have a discussion with her. If the patient wants to talk to her family and is also thinking about moving to dialysis close to her family while starting dialysis. Plan is to consult Surgery if the patient wants to stay here. Otherwise, follow with clinical nursing intern within a week and dialysis. 2. Anemia. 3. Edema. 4. Hypertension. 5. Proteinuria. 6. History of diabetes. Follow up with the family for further plans on starting dialysis. Job ID: [id number]
--- NOTE | 2019-01-01 14:46 | PDOC.PN ---
- Subjective Encounter Start Date: 01/01/19 Encounter Start Time: 08:20 Pt seen for followup re; acute on chronic renal failure. No complaints. - Objective Resuscitation Status - Order Detail: 12/30/18 01:03 Resuscitation Status Routine Resuscitation Status: FULL: Full Resuscitation MAR Reviewed: Yes Vital Signs & Weight: Vital Signs (12 hours) Temp Pulse Resp BP Pulse Ox 01/01/19 12:00 97.6 F 65 17 139/65 97 01/01/19 08:21 65 01/01/19 08:00 98.1 F 64 18 178/81 H 97 01/01/19 07:42 97 01/01/19 04:45 98.0 F 65 20 161/73 H 99 Weight Weight 136 lb 11.2 oz I&O: 12/31/18 01/01/19 01/02/19 06:59 06:59 06:59 Intake Total 2090 2253 Output Total 1250 400 Balance 840 1853 Result Diagrams: 01/01/19 04:35 01/01/19 04:35 Additional Labs: Accuchecks 01/01/19 01/01/19 12/31/18 11:13 06:01 16:55 POC Glucose 166 H 114 H 157 H EKG Reviewed by me: Yes (Tele: NSR) Phys Exam - Physical Examination Constitutional: NAD HEENT: moist MMs Neck: supple Respiratory: clear to auscultation bilateral Cardiovascular: RRR Gastrointestinal: soft Neurological: moves all 4 limbs Psychiatric: normal affect Dx/Plan (1) Acute worsening of stage 4 chronic kidney disease Code(s): N18.4 - CHRONIC KIDNEY DISEASE, STAGE 4 (SEVERE) Status: Acute Comment: creatinine stabilizing, may need dialysis (2) nstemi type 2 Status: Acute Comment: stable (3) HTN (hypertension) Code(s): I10 - ESSENTIAL (PRIMARY) HYPERTENSION Status: Chronic Comment: BP improved (4) DM type 2 (diabetes mellitus, type 2) Status: Chronic Comment: overnight hypoglycemia, stop PM dose of lantus and follow accuchecks - Plan * . Review of Systems - Review of Systems Respiratory: negative: Cough, Shortness of Breath, SOB with Excertion, Pleuritic Pain, Wheezing Cardiovascular: negative: chest pain, palpitations, orthopnea, paroxysmal nocturnal dyspnea, edema, light headedness - Medications/Allergies Allergies/Adverse Reactions: Allergies Allergy/AdvReac Type Severity Reaction Status Date / Time liraglutide [From Victoza] Allergy Verified 12/30/18 01:32 Penicillins Allergy Verified 12/30/18 01:32 Medications: Current Medications Acetaminophen (Tylenol) 650 mg PO Q4H PRN PRN Reason: Headache/Fever/Mild Pain (1-3) Amlodipine Besylate (Norvasc) 5 mg PO BID [facility] Aspirin (Ecotrin) 325 mg PO DAILY [facility] Last Admin: 01/01/19 08:21 Dose: 325 mg Clonidine (Catapres) 0.1 mg PO Q4H PRN PRN Reason: SBP > ____ Last Admin: 01/01/19 01:32 Dose: 0.1 mg Dextrose/Water (Dextrose 50%) 25 gm SLOW IVP PRN PRN PRN Reason: Hypoglycemia Last Admin: 12/31/18 05:00 Dose: 25 gm Famotidine (Pepcid) 20 mg PO DAILY [facility] Last Admin: 01/01/19 08:21 Dose: 20 mg Furosemide (Lasix) 40 mg PO DAILY [facility] Last Admin: 01/01/19 08:21 Dose: 40 mg Glucagon (Glucagon) 1 mg IM PRN PRN PRN Reason: Hypoglycemia Heparin Sodium (Porcine) (Heparin) 5,000 units SC TID [facility] Last Admin: 01/01/19 08:21 Dose: 5,000 units Hydralazine HCl (Apresoline) 10 mg SLOW IVP Q4H PRN PRN Reason: SBP > 180 and HR < 70 Last Admin: 12/31/18 05:57 Dose: 10 mg Hydralazine HCl (Apresoline) 25 mg PO TID [facility] Last Admin: 01/01/19 08:21 Dose: 25 mg Dextrose/Water (D5w) 1,000 mls @ 0 mls/hr IV .Q0M PRN PRN Reason: Hypoglycemia Sodium Chloride (Normal Saline 0.9%) 1,000 mls @ 55 mls/hr IV .[id number] [facility] Last Admin: 01/01/19 06:40 Dose: 1,000 mls Insulin Glargine 10 units/ (Miscellaneous Medication) 0.1 mls @ 0 mls/hr SC QAM -WM [facility] Last Admin: 01/01/19 08:22 Dose: 0.1 mls Insulin Human Lispro (Humalog) 0 units SC .MODERATE SLIDING SC PRN PRN Reason: Moderate Correctional Scale Insulin Human Lispro (Humalog) 0 units SC .BEDTIME SLIDING SC PRN PRN Reason: Bedtime Correctional Scale Last Admin: 12/31/18 21:34 Dose: 2 unit Metoprolol Tartrate (Lopressor) 100 mg PO BID [facility] Last Admin: 01/01/19 08:21 Dose: 100 mg Sodium Chloride (Flush - Normal Saline) 10 ml IVF Q12HR [facility] Last Admin: 01/01/19 08:22 Dose: Not Given Sodium Chloride (Flush - Normal Saline) 10 ml IVF PRN PRN PRN Reason: Saline Flush
[2019-01-01] MEDS: Amlodipine 5 MG TAB PO SCH (20:25)
[2019-01-02] MEDS: Sodium Chloride 0.9% 1,000 ML IV SCH (01:21)
[2019-01-02] MEDS: Dextrose 50% Abboject 50 ML SYRINGE SLOW IVP PRN (03:59)
[2019-01-02] MEDS: hydrALAZINE 20 MG/ML VIAL SLOW IVP PRN (04:05)
[2019-01-02 05:56] LABS: #Basophils 0.1 thou/uL (0.0-0.2); #Eosinphils 0.2 thou/uL (0.0-0.7); #Lymphocytes 0.8 thou/uL (1.20-3.40); #Monocytes 0.3 thou/uL (0.11-0.59); #Neutrophils 4.5 thou/uL (1.40-6.50); %Basophils 1.2 % (0.0-1.0); %Eosinophils 2.6 % (0.0-10.0); %Monocytes 4.8 % (0.0-10.0); %Neutrophils 77.4 % (42.0-75.0); Hemoglobin 8.6 g/dL (12.0-16.0); Mean Corpuscular HGB CONC 31.3 g/dL (32.0-36.0); Mean Corpuscular Volume 73.5 fL (78.0-98.0); Mean Platelet Volume 11.6 fL (7.4-10.4); Platelet Count 292 thou/uL (130-400); RBC Distribution Width 15.2 % (11.5-14.5); Red Blood Cell (RBC) Count 3.75 mill/uL (4.20-5.40); White Blood Cell (WBC) Count 5.9 thou/uL (4.8-10.8)
[2019-01-02 06:14] LABS: Anion Gap 19 mmol/L (10-20); BUN (Urea Nitrogen) 67 mg/dL (9.8-20.1); Calc. Creatinine Clearance 7 mL/min (70-130); Calcium 6.8 mg/dL (7.8-10.44); Carbon Dioxide 18 mmol/L (23-31); Chloride 101 mmol/L (98-107); Estimated GFR-MDRD 7; Glucose 134 mg/dL (83-110); Potassium 3.7 mmol/L (3.5-5.1); Sodium 134 mmol/L (136-145)
[2019-01-02] MEDS: cloNIDine 0.1 MG TAB PO PRN (08:12)
[2019-01-02] MEDS: Furosemide 40 MG TAB PO SCH (09:23)
[2019-01-02] MEDS: Amlodipine 5 MG TAB PO SCH ×2 (09:23→21:28)
[2019-01-02] MEDS: Famotidine 20 MG TAB PO SCH (09:23)
[2019-01-02] MEDS: Aspirin 325 mg Enteric Coated Tablet PO SCH (09:24)
[2019-01-02] MEDS: hydrALAZINE 25 MG TAB PO SCH ×3 (09:24→21:28)
[2019-01-02] MEDS: Metoprolol Tartrate 100 MG TAB PO SCH ×2 (09:24→21:28)
[2019-01-02] MEDS: Heparin 5,000 UNITS/ML VIAL SC SCH ×2 (09:24→21:29)
[2019-01-02] MEDS: Insulin Glargine 10 UNITS in Pre-Filled Syringe 1 EACH SC SCH (09:29)
[2019-01-02] MEDS ORDERED: Tuberculin PPD 0.1 ML VIAL I-DERMAL SCH (11:30)
[2019-01-02 13:12] LABS: Kappa Lambda Light Chain Ratio 1.28 (0.26-1.65); Kappa Light Chains 139.9 mg/L (3.3-19.4); Lambda Light Chain 109.3 mg/L (5.7-26.3)
--- NOTE | 2019-01-02 13:51 | ULT ---
FExam: Vein mapping for dialysis access HISTORY: End-stage renal disease. TECHNIQUE: Multiplanar grayscale and color Doppler images were obtained in a bilateral upper extremit y venous ultrasound. Spectral analysis of the Doppler waveforms of the vessels were performed. FINDINGS: The bilateral internal jugular veins and subclavian veins are patent without evidence of th rombus. Right brachial artery 4 mm Right radial artery 1.7 mm Right ulnar artery 1.9 mm Left brachial artery 4.2 mm Left radial artery 1.6 mm Left ulnar artery 1.5 mm RIGHT CEPHALIC VEIN is thrombosed at the antecubital fossa. RIGHT BASILIC VEIN in millimeters 1.6 -- Shoulder 1.6 -- Upper arm 1.3 -- Mid upper arm 0.8 -- Just proximal to the elbow 0.7 -- Just distal to the elbow 0.5 -- Forearm 0.6 -- Wrist LEFT CEPHALIC VEIN in millimeters 1.0 -- Shoulder 0.7 -- Upper arm 0.6 -- Mid upper arm 0.6 -- Just proximal to the elbow 0.6 -- Just distal to the elbow 0.6, -- Forearm 0.6 -- Wrist LEFT BASILIC VEIN in millimeters 3.3 -- Shoulder 2.8 -- Upper arm 2.2 -- Mid upper arm 2.3 -- Just proximal to the elbow 2.5 -- Just distal to the elbow 0.9 -- Forearm 0.7 -- Wrist IMPRESSION: Vein mapping for dialysis access as above. The right cephalic vein is thrombosed at the e lbow.
--- NOTE | 2019-01-02 15:07 | HP ---
HISTORY OF PRESENT ILLNESS: A 73-year-old black female, followed by Dr. Kent and Dr. Schneider for chronic kidney disease. She has insulin-dependent diabetes mellitus and hypertension. She is followed Dr. Wynne. She was admitted on 12/30/2018 with complaints of diarrhea and some dyspnea. She is having some epigastric tightness and she was evaluated in the emergency room. Her hemoglobin is 8.6, BUN 67, creatinine 7.39, and GFR 7, not improving. I have been asked to see her regarding initiation of dialysis access. She has an IV in her right hand. She has an ultrasound vein mapping performed today per my request, noting right cephalic vein thrombosed at the antecubital fossa and basilic vein, 1.6, 1.6, 1.3 mm, 0.8 mm just above the elbow, 0.7 mm distal to the elbow. Left cephalic vein; 1.0, 0.7, 0.6, 0.6, 0.6 mm to the elbow; basilic vein, 3.3, 2.8, 2.2, 2.3, 2.5 mm. She has had an IV in her right antecubital fossa. She is allergic to penicillin. Plan is for placement of a hemodialysis catheter and a left arm fistula tomorrow. She understands risks and benefits, and consents. Her cephalic vein in the left arm is poor quality. She may need a staged basilic vein transposition fistula to gain access to the [place] vein fistula or she may need a graft pending operative findings. ALLERGIES: PENICILLIN AND VICTOZA. SOCIAL HISTORY: Tobacco, none since she was 42 years of age. Alcohol, none. MEDICATIONS: 1. Insulin 10 units subcu a.m. 2. Glargine 5 units at bedtime. 3. Doxycycline daily. 4. She is listed as an allergy to penicillin, but she is listed as taking amoxicillin p.o. 5. Hydralazine 25 mg t.i.d. 6. Metoprolol 100 mg b.i.d. 7. Furosemide 40 mg a day. PAST SURGICAL HISTORY: Appendectomy, total abdominal hysterectomy, right salpingo-oophorectomy, Pfannenstiel incision, colonoscopy recently, and she was told she did not need to have another one until 2020. The patient lives alone in [place]. She states that after this hospitalization, she will be moving to [place] with her son and would like to have dialysis established there. PAST MEDICAL HISTORY: Insulin-dependent diabetes mellitus and hypertension. Echocardiogram on 12/30/2018 showed 55% to 60% EF, mild to moderate LVH, mild tricuspid regurg, and normal pulmonary artery pressure. Dr. Carrasco has seen her in this hospitalization from Cardiology and felt that she has had a type 2 myocardial infarction with acute on chronic kidney disease. She had an elevated troponin secondary to type 2 myocardial infarction, not felt to be ruptured plaque, recommending conservative therapy. It is also stated that she would benefit from beta-danita and that it is unlikely she had a primary cardiac event with underlying fevers, chills, nausea, vomiting, and diarrhea. PHYSICAL EXAMINATION: VITAL SIGNS: Height 5 feet 2 inches, 142 pounds, 26 BMI, temperature 97.4, heart rate 64, and blood pressure 159/77. HEAD, EARS, EYES, NOSE AND THROAT: Unremarkable. LUNGS: Clear to auscultation. CARDIAC: Regular rate and rhythm without murmur or gallop. ABDOMEN: Soft and nontender. No hernia is evident. EXTREMITIES: Unremarkable. No ankle edema. Palpable radial pulses. Bruising in right antecubital forearm from recent IV. ASSESSMENT AND PLAN: 1. Thrombosed right arm fistula, iatrogenic secondary to blood draws and hospitalization IV access. This occurred despite knowledge of this patient being a chronic kidney disease. The patient has possible basilic vein in the left arm, for which she may need a basilic vein transposition fistula in the future versus prosthetic graft. At this time, I would recommend hemodialysis catheter placement. We will plan this tomorrow as she is eating lunch currently. We will plan left arm fistula or graft as needed. She may need a staged procedure. Plan is under IV sedation, regional anesthesia, local. She understands the risks and benefits, and consents. We will plan placement of a central line if indicated based on IV status tomorrow. 2. Diabetes mellitus. 3. Hypertension. 4. Possible coronary artery disease, normal echocardiogram, followed by Cardiology, Dr. Carrasco. Job ID: [id number]
[2019-01-02 15:14] LABS: IgA - Total IgA (Sendout) 277 mg/dL (64-422); Immunoglobulin - G (Sendout) 899 mg/dL (700-1600); Immunoglobulin - M (Sendout) 60 mg/dL (26-217)
--- NOTE | 2019-01-02 15:53 | PRG ---
DATE OF SERVICE: 01/02/2019 SUBJECTIVE: Patient was seen and examined at bedside and overnight events noted. Patient denies any shortness of breath or chest pain or palpitation. No history of nausea or vomiting or diarrhea or fever or chills or cramps. OBJECTIVE: GENERAL: This is a well-built female, in no apparent distress. VITAL SIGNS: Temperature 99.4. Heart rate 64. Respiratory rate . Blood pressure HEENT: Atraumatic, normocephalic. Oral mucosa is moist NECK: Supple. CARDIOVASCULAR: S1, S2 heard. Rate and rhythm regular. RESPIRATORY: Clear to auscultation. GASTROINTESTINAL: Abdomen is soft. MUSCULOSKELETAL: No tenderness. No edema. DERMATOLOGIC: No skin rash. NEUROLOGIC: Alert and awake and oriented X3. No focal neurologic deficits. Moving all the extremities. PSYCHIATRIC: Mood and affect normal. LABORATORY DATA: Potassium is 3.7, BUN is 67, creatinine is 7.3. ASSESSMENT: 1. Chronic kidney disease 5, with other no improvement in renal function. The patient needs dialysis and family is agreeable. We will consult Surgery and Case Management for dialysis placement. 2. Anemia. 3. Edema. 4. Hypertension. 5. History of diabetes. PLAN: Plan is to start on dialysis. Surgery consult placed. Follow with Case Management for outpatient placement. We will start on dialysis soon as access is placed. Vein mapping ordered. Job ID: [id number]
--- NOTE | 2019-01-02 20:02 | PDOC.PN ---
- Subjective Encounter Start Date: 01/02/19 Encounter Start Time: 16:00 Subjective: pt up in bed no complains - Objective Resuscitation Status - Order Detail: 12/30/18 01:03 Resuscitation Status Routine Resuscitation Status: FULL: Full Resuscitation Vital Signs & Weight: Vital Signs (12 hours) Temp Pulse Resp BP BP Pulse Ox 01/02/19 19:19 97.3 F L 66 18 188/81 H 97 01/02/19 16:00 97.9 F 66 18 165/72 H 96 01/02/19 14:29 63 161/74 H 01/02/19 11:41 97.4 F L 64 19 159/77 H 99 01/02/19 09:24 68 160/71 H 01/02/19 08:08 97.2 F L 69 20 194/79 H 99 Weight Weight 142 lb 1.6 oz I&O: 01/01/19 01/02/19 01/03/19 06:59 06:59 06:59 Intake Total 2253 1270 Output Total 400 300 Balance 1853 970 Result Diagrams: 01/02/19 05:03 01/02/19 05:03 Additional Labs: Accuchecks 01/02/19 01/02/19 01/02/19 16:28 10:52 05:27 POC Glucose 206 H 161 H 162 H 01/02/19 01/02/19 01/01/19 04:30 03:55 20:24 POC Glucose 240 H 48 L* 117 H 12/31/18 20:31 POC Glucose 245 H Phys Exam - Physical Examination Respiratory: no wheezing, no rales, no rhonchi, wheezing present, clear to auscultation bilateral Cardiovascular: RRR, no significant murmur, no rub, gallop, irregular Gastrointestinal: soft, non-tender, no distention, positive bowel sounds Musculoskeletal: no edema, pulses present, edema present Dx/Plan (1) Acute worsening of stage 4 chronic kidney disease Code(s): N18.4 - CHRONIC KIDNEY DISEASE, STAGE 4 (SEVERE) Status: Acute Comment: creatinine stabilizing, may need dialysis (2) nstemi type 2 Status: Acute Comment: stable (3) DM type 2 (diabetes mellitus, type 2) Status: Chronic (4) HTN (hypertension) Code(s): I10 - ESSENTIAL (PRIMARY) HYPERTENSION Status: Chronic Comment: BP improved - Plan pt went for vein mapping -: pt's hypoglycemia has resolved. -: will continue bp meds for now * . Review of Systems - Review of Systems Respiratory: negative: Cough, Dry, Shortness of Breath, Hemoptysis, SOB with Excertion, Pleuritic Pain, Sputum, Wheezing Cardiovascular: negative: chest pain, palpitations, orthopnea, paroxysmal nocturnal dyspnea, edema, light headedness, other Gastrointestinal: negative: Nausea, Vomiting, Abdominal Pain, Diarrhea, Constipation, Melena, Hematochezia, Other - Medications/Allergies Allergies/Adverse Reactions: Allergies Allergy/AdvReac Type Severity Reaction Status Date / Time liraglutide [From Victoza] Allergy Verified 12/30/18 01:32 Penicillins Allergy Verified 12/30/18 01:32 Medications: Current Medications Acetaminophen (Tylenol) 650 mg PO Q4H PRN PRN Reason: Headache/Fever/Mild Pain (1-3) Amlodipine Besylate (Norvasc) 5 mg PO BID [facility] Last Admin: 01/02/19 09:23 Dose: 5 mg Aspirin (Ecotrin) 325 mg PO DAILY [facility] Last Admin: 01/02/19 09:24 Dose: 325 mg Clonidine (Catapres) 0.1 mg PO Q4H PRN PRN Reason: SBP > ____ Last Admin: 01/02/19 08:12 Dose: 0.1 mg Dextrose/Water (Dextrose 50%) 25 gm SLOW IVP PRN PRN PRN Reason: Hypoglycemia Last Admin: 01/02/19 03:59 Dose: 25 gm Famotidine (Pepcid) 20 mg PO DAILY [facility] Last Admin: 01/02/19 09:23 Dose: 20 mg Furosemide (Lasix) 40 mg PO DAILY [facility] Last Admin: 01/02/19 09:23 Dose: 40 mg Glucagon (Glucagon) 1 mg IM PRN PRN PRN Reason: Hypoglycemia Heparin Sodium (Porcine) (Heparin) 5,000 units SC BID [facility] Hydralazine HCl (Apresoline) 10 mg SLOW IVP Q4H PRN PRN Reason: SBP > 180 and HR < 70 Last Admin: 01/02/19 04:05 Dose: 10 mg Hydralazine HCl (Apresoline) 25 mg PO TID [facility] Last Admin: 01/02/19 14:29 Dose: 25 mg Dextrose/Water (D5w) 1,000 mls @ 0 mls/hr IV .Q0M PRN PRN Reason: Hypoglycemia Insulin Glargine 10 units/ (Miscellaneous Medication) 0.1 mls @ 0 mls/hr SC QAM -WM [facility] Last Admin: 01/02/19 09:29 Dose: 0.1 mls Levofloxacin 500 mg/ Device 100 mls @ 100 mls/hr IVPB ONCALL-OR VALERIE Insulin Human Lispro (Humalog) 0 units SC .MODERATE SLIDING SC PRN PRN Reason: Moderate Correctional Scale Last Admin: 01/02/19 17:30 Dose: 4 unit Insulin Human Lispro (Humalog) 0 units SC .BEDTIME SLIDING SC PRN PRN Reason: Bedtime Correctional Scale Last Admin: 12/31/18 21:34 Dose: 2 unit Metoprolol Tartrate (Lopressor) 100 mg PO BID [facility] Last Admin: 01/02/19 09:24 Dose: 100 mg Read Ppd Test Site 0 each PO ONE [facility] Stop: 01/04/19 09:01 Sodium Chloride (Flush - Normal Saline) 10 ml IVF Q12HR [facility] Last Admin: 01/02/19 09:27 Dose: 10 ml Sodium Chloride (Flush - Normal Saline) 10 ml IVF PRN PRN PRN Reason: Saline Flush Tuberculin PPD (Aplisol) 0.1 ml I-DERMAL ONE [facility] Stop: 01/05/19 13:00 Last Admin: 01/02/19 13:57 Dose: 0.1 ml
[2019-01-03] MEDS: Metoprolol Tartrate 100 MG TAB PO SCH ×2 (05:36→21:52)
[2019-01-03] MEDS: Dextrose 50% Abboject 50 ML SYRINGE SLOW IVP PRN (05:36)
[2019-01-03 07:13] LABS: Anion Gap 19 mmol/L (10-20); BUN (Urea Nitrogen) 68 mg/dL (9.8-20.1); Calc. Creatinine Clearance 7 mL/min (70-130); Calcium 6.8 mg/dL (7.8-10.44); Carbon Dioxide 20 mmol/L (23-31); Chloride 101 mmol/L (98-107); Estimated GFR-MDRD 6; Glucose 105 mg/dL (83-110); Potassium 4.2 mmol/L (3.5-5.1); Sodium 136 mmol/L (136-145)
[2019-01-03 07:31] LABS: HBSAg Index 0.58 S/CO (0-0.99); Hep B Core Total Ab Non-Reactive (NonReactive); Hep B Core Total Index 0.15 S/CO (0-0.79); Hep B Surf Ag Non-Reactive S/CO (NonReactive); Hep C IgG Ab Non-Reactive (NonReactive)
[2019-01-03] MEDS: hydrALAZINE 25 MG TAB PO SCH ×3 (08:23→21:52)
[2019-01-03] MEDS: Famotidine 20 MG TAB PO SCH (08:23)
[2019-01-03] MEDS: Amlodipine 5 MG TAB PO SCH ×2 (08:23→21:52)
[2019-01-03] MEDS: Furosemide 40 MG TAB PO SCH (08:23)
[2019-01-03] MEDS: Aspirin 325 mg Enteric Coated Tablet PO SCH (08:23)
[2019-01-03 08:28] LABS: HBSAB Concentration 81.49 mIU/mL; Hep B Surf AB Reactive (NonReactive)
[2019-01-03] MEDS: Insulin Glargine 10 UNITS in Pre-Filled Syringe 1 EACH SC SCH (08:29)
[2019-01-03] MEDS ORDERED: Heparin 10,000 UNITS/ 10 ML VIAL ONE ×2 (12:00→12:17)
[2019-01-03] MEDS ORDERED: Bupivacaine HCl 0.5%/Epinephrine 1:200,000/PF 30 ml Vial ONE ×2 (12:04→14:22)
[2019-01-03 12:17] LABS: Hemoglobin 7.7 g/dL (12.0-16.0); Platelet Count 305 thou/uL (130-400)
[2019-01-03] MEDS ORDERED: ePHEDrine 50 MG/ML VIAL ONE ×2 (12:17)
[2019-01-03] MEDS ORDERED: PROPOFOL 200 MG/20 ML VIAL ONE (12:17)
[2019-01-03] MEDS ORDERED: Levofloxacin 500 mg/D5W 100 ml Premix Bag ONE (14:01)
[2019-01-03] MEDS ORDERED: Heparin 10,000 UNITS/1 ML VIAL ONE (14:22)
[2019-01-03] MEDS ORDERED: Lidocaine 2% PF 5 ML VIAL ONE (14:22)
[2019-01-03] MEDS ORDERED: Sodium Chloride 0.9% 10 ML ONE (14:22)
[2019-01-03] MEDS ORDERED: Protamine Sulfate 50 MG/5 ML VIAL ONE (14:22)
[2019-01-03] MEDS ORDERED: Heparin 5,000 UNITS/ML VIAL ONE (14:24)
[2019-01-03] MEDS ORDERED: Propofol 1,000 MG/100 ML VIAL IV ONE (14:53)
[2019-01-03] MEDS ORDERED: Midazolam HCl 2 mg/2 ml Vial ONE (14:53)
[2019-01-03] MEDS ORDERED: Fentanyl 100 MCG/2 ML VIAL ONE (14:53)
[2019-01-03] MEDS ORDERED: Sodium Chloride 0.9% 20 ML ONE (15:26)
[2019-01-03] MEDS: Heparin 5,000 UNITS/ML VIAL SC SCH ×2 (15:28→21:53)
--- NOTE | 2019-01-03 18:23 | PRG ---
DATE OF SERVICE: 01/03/2019 SUBJECTIVE: Patient was seen and examined at bedside and overnight events noted. Patient denies any shortness of breath or chest pain or palpitation. No history of nausea or vomiting or diarrhea or fever or chills or cramps. OBJECTIVE: GENERAL: This is a well-built female, in no apparent distress. VITAL SIGNS: Temperature 97.8. Heart rate 65. Respiratory rate . Blood pressure 176/77. HEENT: Atraumatic, normocephalic. Oral mucosa is moist NECK: Supple. CARDIOVASCULAR: S1, S2 heard. Rate and rhythm regular. RESPIRATORY: Clear to auscultation. GASTROINTESTINAL: Abdomen is soft. MUSCULOSKELETAL: No tenderness. No edema. DERMATOLOGIC: No skin rash. NEUROLOGIC: Alert and awake and oriented X3. No focal neurologic deficits. Moving all the extremities. PSYCHIATRIC: Mood and affect normal. LABORATORY DATA: Potassium is 4.2, BUN is 68, and creatinine 7.7. ASSESSMENT AND PLAN: 1. End-stage renal disease. Plan is to start on dialysis. 2. Edema. We will remove fluid. 3. Anemia. 4. Hypertension. 5. History of diabetes. 6. Proteinuria. Appreciate help from surgery. We will start dialysis as soon as access is placed. Job ID: [id number]
--- NOTE | 2019-01-03 19:02 | RAD ---
PORTABLE CHEST ONE VIEW: 01/03/19 at 6:05 p.m. HISTORY: Line placement. FINDINGS/IMPRESSION: Comparison made with exam of 12/29/18. There is a right internal jugular dialysis catheter with tip in the projection of the SVC. There is a left internal jugular central venous catheter with tip in the projection of the right atrium. The he art size is stable. There is consolidation/atelectatic change at the left lung base with small left e ffusion. No pneumothoraces are seen. POS: JAVI
--- NOTE | 2019-01-03 19:08 | OP ---
DATE OF PROCEDURE: 01/03/2019 PREOPERATIVE DIAGNOSES: End-stage renal disease, occluded cephalic vein and antecubital vein, iatrogenic from IV access on admission. POSTOPERATIVE DIAGNOSES: End-stage renal disease, occluded cephalic vein and antecubital vein, iatrogenic from IV access on admission with occluded cephalic vein, left arm outflow, mid upper arm. ANESTHESIA: Regional left arm block, intravenous sedation, local of 0.5% Marcaine with epinephrine 30 mL mixed with 2% Xylocaine 10 mL. PROCEDURES PERFORMED: Ultrasound and fluoroscopy used to place right IJ cuffed tunneled hemodialysis catheter, precurved AngioDynamics. Left IJ triple-lumen catheter placed. Left wrist exploration revealed cephalic vein at the wrist to be too small, and this wound was closed. Left arm primary fistula undertaken initially. The cephalic vein was seen to be adequate and proximal radial artery anastomosis, cephalic vein outflow, complete fistula but outflow was apparently occluded as there was not a good thrill. Thus, this was converted to a PTFE graft tapered 4 to 7 taper PTFE graft from the inflow proximal radial artery, outflow portion of the cephalic vein, PTFE graft outflow axillary vein, which was of excellent caliber. DESCRIPTION OF PROCEDURE: The patient was taken to the operating room, where under intravenous sedation, neck, chest, and left upper extremity were prepared with ChloraPrep and draped in routine fashion. Local anesthetic was infiltrated in the skin and subcutaneous tissue about the operative site for placement of the central lines. Ultrasound guidance was used to cannulate the right and left internal jugular veins with trocars. A J-wire was threaded. Trocar catheter was removed. Skin site was enlarged sharply, and on the left, a triple-lumen catheter was placed using Seldinger technique, securing it with 3-0 nylon suture, and each port aspirated blood, flushed with saline solution. On the right side, a stab incision was made over the right chest. Using the tunneling device, a pre-curved AngioDynamics cuffed-tunneled hemodialysis catheter tunneled between 2 incisions, placed the fabric cuff beneath the skin exit site. The catheter was secured with 2 interrupted sutures of 3-0 nylon. Sterile dressing was applied. Small- and medium-sized dilators were placed over the J-wire and the internal jugular vein removed. Dilator and Peel-Away sheath placed with J-wire into superior vena cava, and dilator and J-wire were removed. Catheter was placed through the Peel-Away sheath. The Peel-Away sheath removed. Platysma was approximated with 4-0 Monocryl, skin with subdermal 4-0 Monocryl and Conway glue and sterile dressings applied. Fluoroscopic images revealed good line placement. Each port of the dialysis catheter aspirated blood, flushed with saline solution and heparinized saline solution 1000 units of heparin per mL indicating the volume of the port. Attention was then turned to the left arm. I then made an incision in the proximal volar forearm below the antecubital fossa longitudinally, carried down to skin and subcutaneous tissue. Antecubital vein was so good. I then made an incision in the left wrist, but the cephalic vein at this level was not adequate and this wound was closed by approximating subcutaneous tissues with 3-0 and skin with 4-0 Monocryl and Conway glue applied. Attention was then turned to the proximal forearm, where the fistula was undertaken, and the cephalic vein dissected free. Perforating branch dissected free. It was seen to be small and thus it was ligated. The proximal radial artery and brachial ulnar artery were of excellent caliber without arteriosclerotic disease. These were dissected free. The patient was given 6000 units of heparin intravenously. Antecubital vein/cephalic vein was of excellent size. It was dissected free. There was more distal bifurcation of the radial artery than usual requiring elongation of the incision. The cephalic vein dissected free and stump on the hand side ligated with 3-0 silk ties as the vein was open and interrogated with coronary dilators passing coronary dilators from a 2 mm to 3.5 mm coronary dilator without obstruction. The longer dilator seemed to meet some obstruction in the mid upper arm, but this was felt possibly to be a branch as it had good backflow and the others passed well. At this point, the antecubital vein was spatulated and anastomosed to the proximal radial artery, completing with continuous suture of 6-0 Prolene. After completion of the anastomosis, there was noted to be an absence of Doppler signal in the cephalic vein fistula and outflow in the upper arm. It was noted that the good thrill in the antecubital fossa was maintained by retrograde filling of the perforating branch. For this reason, it was felt that the outflow in the cephalic vein in the upper arm was occluded and this would not suffice. An incision was made in the left axilla, carried down to skin and subcutaneous tissue. An axillary vein was of excellent caliber. It was dissected free, surrounded with silastic vessel loop. A Catrachita-Wick tunneler was then used to pass a graft from the antecubital fossa to the axilla, tapered as described. The axillary vein to graft anastomosis created with a side-to-end anastomosis respectively tiring the graft for a copperhead anastomosis for 3 cm anastomosis and a longitudinal venotomy made in the axillary vein. Once the anastomosis was completed with 6-0 Prolene, vascular clamps released and there was good flow. Vascular clamp was placed across the graft. Attention was then turned to the antecubital area, where the end graft was anastomosed to the cephalic vein outflow stump with inflow through the proximal radial artery as initially described. End graft to end cephalic vein anastomosis was created with continuous suture of 6-0 Prolene, spatulating these two ends accordingly. After completion anastomosis, the patient was given 25 mg of protamine. There was a good Doppler signal in the axillary vein outflow. Good hemostasis was noted. Surgicel was applied. All skin incisions were approximated with continuous suture of 3-0 Monocryl, skin with subdermal 4-0 Monocryl, and Conway glue and sterile dressing were applied. The patient tolerated the procedure well. Job ID: [id number]
--- NOTE | 2019-01-03 21:45 | PDOC.PN ---
- Subjective Encounter Start Date: 01/03/19 - Objective Resuscitation Status - Order Detail: 12/30/18 01:03 Resuscitation Status Routine Resuscitation Status: FULL: Full Resuscitation Vital Signs & Weight: Vital Signs (12 hours) Temp Pulse Resp BP Pulse Ox 01/03/19 19:00 67 19 169/79 H 95 01/03/19 12:20 97.8 F 65 20 176/77 H 98 Weight Weight 140 lb I&O: 01/02/19 01/03/19 01/04/19 06:59 06:59 06:59 Intake Total 1270 360 Output Total 300 Balance 970 360 Result Diagrams: 01/03/19 11:53 01/03/19 11:53 Additional Labs: Accuchecks 01/03/19 01/03/19 10:52 06:36 POC Glucose 95 132 H Dx/Plan (1) Acute worsening of stage 4 chronic kidney disease Code(s): N18.4 - CHRONIC KIDNEY DISEASE, STAGE 4 (SEVERE) Status: Acute Comment: creatinine stabilizing, may need dialysis (2) nstemi type 2 Status: Acute Comment: stable (3) DM type 2 (diabetes mellitus, type 2) Status: Chronic (4) HTN (hypertension) Code(s): I10 - ESSENTIAL (PRIMARY) HYPERTENSION Status: Chronic Comment: BP improved - Plan * .
[2019-01-03] MEDS: cloNIDine 0.1 MG TAB PO PRN (21:53)
[2019-01-04] MEDS: traMADol HCl 50 MG TAB PO PRN (01:22)
[2019-01-04] MEDS: Ondansetron PF 4 MG/2 ML Vial IVP PRN ×2 (01:26→08:47)
[2019-01-04] MEDS: Morphine 4 MG/ML VIAL SLOW IVP PRN (04:35)
[2019-01-04] MEDS: Amlodipine 5 MG TAB PO SCH ×2 (08:18→21:10)
[2019-01-04] MEDS: Metoprolol Tartrate 100 MG TAB PO SCH ×2 (08:18→21:10)
[2019-01-04] MEDS: Aspirin 325 mg Enteric Coated Tablet PO SCH (08:18)
[2019-01-04] MEDS: hydrALAZINE 25 MG TAB PO SCH ×3 (08:19→21:10)
[2019-01-04] MEDS: Famotidine 20 MG TAB PO SCH (08:19)
[2019-01-04] MEDS: Furosemide 40 MG TAB PO SCH (08:19)
[2019-01-04] MEDS: Heparin 5,000 UNITS/ML VIAL SC SCH ×2 (08:21→21:10)
[2019-01-04] MEDS: Insulin Glargine 10 UNITS in Pre-Filled Syringe 1 EACH SC SCH ×2 (08:22→13:44)
[2019-01-04] MEDS: Polyethylene Glycol 3350 17 GM Packet PO SCH (08:31)
[2019-01-04] MEDS ORDERED: READ PPD TEST SITE PO SCH (09:00)
--- NOTE | 2019-01-04 12:30 | PRG ---
DATE OF SERVICE: 01/04/2019 Annie Mcclain is doing well today. Her left arm Elvis wrap is removed. The wound can be left open. Her wounds in her left wrist, antecubital area, and axilla are well healed. There are no wound problems. She has good thrill and bruit in her left upper arm dialysis graft. She has good hand function and her hand is warm. 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 At this point, she is doing well. I would recommend she use her arm as able exercise it. She should follow up in my office in 3 weeks. Central line can be removed prior to discharge. She may have some left arm swelling. She can elevate it as needed. I anticipate accessed the prosthetic graft in her left upper arm in about 4 weeks. Until that time, she will continue to use the right IJ hemodialysis catheter for dialysis access. As needed this hospitalization, please call if necessary. Job ID: [id number]
[2019-01-04] MEDS: cloNIDine 0.1 MG TAB PO PRN (13:43)
[2019-01-04 15:23] LABS: ANA Symphony (Qualitative) Negative (Negative); ANA Symphony (Quantitative) 0.1 Ratio (< 0.7 Negative); dsDNA IgG Antibody 2.9 IU/mL (<10 Negative)
--- NOTE | 2019-01-04 16:28 | PDOC.PN ---
- Subjective Encounter Start Date: 01/04/19 Encounter Start Time: 10:15 Subjective: pt up in bed complains of nausea. she has pain to her left upper -: arm - Objective Resuscitation Status - Order Detail: 12/30/18 01:03 Resuscitation Status Routine Resuscitation Status: FULL: Full Resuscitation Vital Signs & Weight: Vital Signs (12 hours) Temp Pulse Resp BP BP Pulse Ox 01/04/19 16:11 177/76 H 01/04/19 13:43 189/76 H 01/04/19 12:00 97.2 F L 71 17 189/76 H 96 01/04/19 08:19 68 01/04/19 08:18 68 01/04/19 08:00 97.8 F 67 18 178/74 H 95 Weight Weight 144 lb 3.2 oz I&O: 01/03/19 01/04/19 01/05/19 06:59 06:59 06:59 Intake Total 360 520 Output Total 350 Balance 360 170 Result Diagrams: 01/03/19 11:53 01/03/19 11:53 Additional Labs: Accuchecks 01/04/19 01/04/19 01/03/19 11:11 05:38 20:26 POC Glucose 271 H 214 H 116 H 01/03/19 14:22 POC Glucose 97 Phys Exam - Physical Examination Neck: no nodes, no JVD, supple, full ROM Respiratory: no wheezing, no rales, no rhonchi, wheezing present, clear to auscultation bilateral Cardiovascular: RRR, no significant murmur, no rub, gallop, irregular Gastrointestinal: soft, non-tender, no distention, positive bowel sounds Dx/Plan (1) Acute worsening of stage 4 chronic kidney disease Code(s): N18.4 - CHRONIC KIDNEY DISEASE, STAGE 4 (SEVERE) Status: Acute Comment: creatinine stabilizing, may need dialysis (2) nstemi type 2 Status: Acute Comment: stable (3) DM type 2 (diabetes mellitus, type 2) Status: Chronic (4) HTN (hypertension) Code(s): I10 - ESSENTIAL (PRIMARY) HYPERTENSION Status: Chronic Comment: BP improved - Plan pt nauseated, pt has not had a bm since wednesday -: will order stool softners. Also possible gastroparesis vs -: dialysis induced nausea. will continue to montior * . Review of Systems - Review of Systems Respiratory: negative: Cough, Dry, Shortness of Breath, Hemoptysis, SOB with Excertion, Pleuritic Pain, Sputum, Wheezing Cardiovascular: negative: chest pain, palpitations, orthopnea, paroxysmal nocturnal dyspnea, edema, light headedness, other Gastrointestinal: Nausea Genitourinary: negative: Dysuria, Frequency, Incontinence, Hematuria, Retention , Other - Medications/Allergies Allergies/Adverse Reactions: Allergies Allergy/AdvReac Type Severity Reaction Status Date / Time liraglutide [From Victoza] Allergy Verified 12/30/18 01:32 Penicillins Allergy Verified 12/30/18 01:32 Medications: Current Medications Acetaminophen (Tylenol) 1,000 mg PO Q6H PRN PRN Reason: Moderate to Severe Pain (6-10) Amlodipine Besylate (Norvasc) 5 mg PO BID [facility] Last Admin: 01/04/19 08:18 Dose: 5 mg Aspirin (Ecotrin) 325 mg PO DAILY [facility] Last Admin: 01/04/19 08:18 Dose: 325 mg Clonidine (Catapres) 0.1 mg PO Q4H PRN PRN Reason: SBP > ____ Last Admin: 01/04/19 13:43 Dose: 0.1 mg Dextrose/Water (Dextrose 50%) 25 gm SLOW IVP PRN PRN PRN Reason: Hypoglycemia Last Admin: 01/03/19 05:36 Dose: 25 gm Famotidine (Pepcid) 20 mg PO DAILY [facility] Last Admin: 01/04/19 08:19 Dose: 20 mg Furosemide (Lasix) 40 mg PO DAILY [facility] Last Admin: 01/04/19 08:19 Dose: 40 mg Glucagon (Glucagon) 1 mg IM PRN PRN PRN Reason: Hypoglycemia Heparin Sodium (Porcine) (Heparin) 5,000 units SC BID [facility] Last Admin: 01/04/19 08:21 Dose: 5,000 units Hydralazine HCl (Apresoline) 10 mg SLOW IVP Q4H PRN PRN Reason: SBP > 180 and HR < 70 Last Admin: 01/02/19 04:05 Dose: 10 mg Hydralazine HCl (Apresoline) 25 mg PO TID [facility] Last Admin: 01/04/19 16:11 Dose: 25 mg Dextrose/Water (D5w) 1,000 mls @ 0 mls/hr IV .Q0M PRN PRN Reason: Hypoglycemia Levofloxacin 500 mg/ Device 100 mls @ 100 mls/hr IVPB ONCALL-OR [facility] Insulin Glargine 10 units/ (Miscellaneous Medication) 0.1 mls @ 0 mls/hr SC QAM [facility] Last Admin: 01/04/19 13:44 Dose: 0.1 mls Insulin Human Lispro (Humalog) 0 units SC .MODERATE SLIDING SC PRN PRN Reason: Moderate Correctional Scale Last Admin: 01/02/19 17:30 Dose: 4 unit Insulin Human Lispro (Humalog) 0 units SC .BEDTIME SLIDING SC PRN PRN Reason: Bedtime Correctional Scale Last Admin: 12/31/18 21:34 Dose: 2 unit Metoprolol Tartrate (Lopressor) 100 mg PO BID [facility] Last Admin: 01/04/19 08:18 Dose: 100 mg Morphine Sulfate (Morphine) 4 mg SLOW IVP Q4H PRN PRN Reason: Pain Last Admin: 01/04/19 04:35 Dose: 4 mg Ondansetron HCl (Zofran) 4 mg IVP Q6H PRN PRN Reason: Nausea/Vomiting Last Admin: 01/04/19 08:47 Dose: 4 mg Polyethylene Glycol (Miralax) 17 gm PO DAILY [facility] Last Admin: 01/04/19 08:31 Dose: 17 gm Sodium Chloride (Flush - Normal Saline) 10 ml IVF Q12HR [facility] Last Admin: 01/04/19 08:31 Dose: 10 ml Sodium Chloride (Flush - Normal Saline) 10 ml IVF PRN PRN PRN Reason: Saline Flush Tramadol HCl (Ultram) 50 mg PO Q6H PRN PRN Reason: Pain 1-5 Last Admin: 01/04/19 01:22 Dose: 50 mg Tuberculin PPD (Aplisol) 0.1 ml I-DERMAL ONE [facility] Stop: 01/05/19 13:00 Last Admin: 01/02/19 13:57 Dose: 0.1 ml
[2019-01-04] MEDS ORDERED: Bisacodyl 5 MG TAB PO SCH (16:30)
--- NOTE | 2019-01-04 18:39 | PRG ---
DATE OF SERVICE: 01/04/2019 SUBJECTIVE: Patient was seen and examined at bedside and overnight events noted. Patient denies any shortness of breath or chest pain or palpitation. No history of nausea or vomiting or diarrhea or fever or chills or cramps. OBJECTIVE: GENERAL: This is a well-built female, in no apparent distress. VITAL SIGNS: Temperature 97.2. Heart rate 71. Respiratory rate 18. Blood pressure 118/76. HEENT: Atraumatic, normocephalic. Oral mucosa is moist NECK: Supple. CARDIOVASCULAR: S1, S2 heard. Rate and rhythm regular. RESPIRATORY: Clear to auscultation. GASTROINTESTINAL: Abdomen is soft. MUSCULOSKELETAL: No tenderness. No edema. DERMATOLOGIC: No skin rash. NEUROLOGIC: Alert and awake and oriented X3. No focal neurologic deficits. Moving all the extremities. PSYCHIATRIC: Mood and affect normal. LABORATORY DATA: None today. ASSESSMENT AND PLAN: 1. End-stage renal disease, continue on dialysis as tolerated, had dialysis yesterday, and we will have dialysis tomorrow. 2. Edema. 3. Anemia. Monitor hemoglobin. 4. Hypertensive. 5. Diabetic nephropathy. 6. Plan to continue on dialysis as tolerated. Job ID: [id number]
[2019-01-04] MEDS ORDERED: Bisacodyl 10 MG SUPP PR PRN (20:25)
[2019-01-04] MEDS: Senokot S 8.6-50 MG TAB PO SCH (21:09)
[2019-01-05] MEDS: cloNIDine 0.1 MG TAB PO PRN ×2 (03:35→18:39)
[2019-01-05 05:29] LABS: Anion Gap 16 mmol/L (10-20); BUN (Urea Nitrogen) 51 mg/dL (9.8-20.1); Calc. Creatinine Clearance 9 mL/min (70-130); Calcium 7.2 mg/dL (7.8-10.44); Carbon Dioxide 23 mmol/L (23-31); Chloride 96 mmol/L (98-107); Estimated GFR-MDRD 8; Glucose 141 mg/dL (83-110); Iron 26 ug/dL (50-170); Iron Binding Capacity, Total 190 mcg/dL (265-497); Potassium 4.3 mmol/L (3.5-5.1); Sodium 131 mmol/L (136-145)
[2019-01-05] MEDS: Metoprolol Tartrate 100 MG TAB PO SCH ×2 (09:07→21:18)
[2019-01-05] MEDS: Senokot S 8.6-50 MG TAB PO SCH ×2 (09:07→21:18)
[2019-01-05] MEDS: Furosemide 40 MG TAB PO SCH (09:07)
[2019-01-05] MEDS: Amlodipine 5 MG TAB PO SCH ×3 (09:08→21:18)
[2019-01-05] MEDS: Aspirin 325 mg Enteric Coated Tablet PO SCH (09:08)
[2019-01-05] MEDS: Famotidine 20 MG TAB PO SCH (09:08)
[2019-01-05] MEDS: Heparin 5,000 UNITS/ML VIAL SC SCH ×2 (09:08→21:18)
[2019-01-05] MEDS: Insulin Glargine 10 UNITS in Pre-Filled Syringe 1 EACH SC SCH (09:09)
[2019-01-05] MEDS: hydrALAZINE 25 MG TAB PO SCH ×3 (09:09→21:18)
[2019-01-05] MEDS: Polyethylene Glycol 3350 17 GM Packet PO SCH (09:10)
[2019-01-05 10:51] LABS: Hemoglobin 6.9 g/dL (12.0-16.0); Platelet Count 274 thou/uL (130-400)
[2019-01-05] MEDS ORDERED: EPOETIN ALFA-EPBX (ESRD) 10,000 UNIT/ML VIAL SC SCH (12:15)
--- NOTE | 2019-01-05 16:03 | PRG ---
DATE OF SERVICE: 01/05/2019 SUBJECTIVE: Patient was seen and examined at bedside and overnight events noted. Patient denies any shortness of breath or chest pain or palpitation. No history of nausea or vomiting or diarrhea or fever or chills or cramps. OBJECTIVE: GENERAL: This is a well-built female, in no apparent distress. VITAL SIGNS: Temperature 97.8. Heart rate 57. Respiratory rate 18. Blood pressure 145/70. HEENT: Atraumatic, normocephalic. Oral mucosa is moist NECK: Supple. CARDIOVASCULAR: S1, S2 heard. Rate and rhythm regular. RESPIRATORY: Clear to auscultation. GASTROINTESTINAL: Abdomen is soft. MUSCULOSKELETAL: No tenderness. No edema. DERMATOLOGIC: No skin rash. NEUROLOGIC: Alert and awake and oriented X3. No focal neurologic deficits. Moving all the extremities. PSYCHIATRIC: Mood and affect normal. LABORATORY DATA: Hemoglobin is 6.9. Potassium is 4.3, BUN is 51, and creatinine is 6.2. ASSESSMENT AND PLAN: 1. End-stage renal disease. Continue on dialysis as tolerated. We will have dialysis today. 2. Anemia. Monitor hemoglobin. 3. Edema, controlled. 4. Hypertension. 5. Diabetic neuropathy. Plan to continue on dialysis as tolerated. Job ID: [id number]
[2019-01-06] MEDS: traMADol HCl 50 MG TAB PO PRN (01:06)
[2019-01-06] MEDS: Morphine 4 MG/ML VIAL SLOW IVP PRN ×2 (01:56→23:00)
[2019-01-06] MEDS: Famotidine 20 MG TAB PO SCH (08:47)
[2019-01-06] MEDS: Furosemide 40 MG TAB PO SCH (08:47)
[2019-01-06] MEDS: Metoprolol Tartrate 100 MG TAB PO SCH (08:47)
[2019-01-06] MEDS: Acetaminophen 500 MG TAB PO PRN ×2 (08:47→20:52)
[2019-01-06] MEDS: Polyethylene Glycol 3350 17 GM Packet PO SCH (08:48)
[2019-01-06] MEDS: Amlodipine 5 MG TAB PO SCH (08:49)
[2019-01-06] MEDS: Heparin 5,000 UNITS/ML VIAL SC SCH ×2 (08:49→20:51)
[2019-01-06] MEDS: Insulin Glargine 10 UNITS in Pre-Filled Syringe 1 EACH SC SCH (08:49)
[2019-01-06] MEDS: hydrALAZINE 25 MG TAB PO SCH ×3 (08:49→20:52)
[2019-01-06] MEDS: Senokot S 8.6-50 MG TAB PO SCH ×2 (08:49→20:51)
[2019-01-06] MEDS: Aspirin 325 mg Enteric Coated Tablet PO SCH (08:49)
--- NOTE | 2019-01-06 12:01 | PRG ---
DATE OF SERVICE: 01/06/2019 SUBJECTIVE: Patient was seen and examined at bedside and overnight events noted. Patient denies any shortness of breath or chest pain or palpitation. No history of nausea or vomiting or diarrhea or fever or chills or cramps. OBJECTIVE: GENERAL: This is a well-built female, in no apparent distress. VITAL SIGNS: Temperature 97.8. Heart rate 54. Respiratory rate 18. Blood pressure 152/70. HEENT: Atraumatic, normocephalic. Oral mucosa is moist NECK: Supple. CARDIOVASCULAR: S1, S2 heard. Rate and rhythm regular. RESPIRATORY: Clear to auscultation. GASTROINTESTINAL: Abdomen is soft. MUSCULOSKELETAL: No tenderness. No edema. DERMATOLOGIC: No skin rash. NEUROLOGIC: Alert and awake and oriented X3. No focal neurologic deficits. Moving all the extremities. PSYCHIATRIC: Mood and affect normal. LABORATORY DATA: None today. ASSESSMENT AND PLAN: 1. End-stage renal disease. Continue on dialysis as tolerated. 2. Anemia. 3. Edema. 4. Hypertension. 5. Diabetic nephropathy. Plan to continue on dialysis as tolerated. Job ID: [id number]
--- NOTE | 2019-01-06 13:34 | PDOC.PN ---
- Subjective Encounter Start Date: 01/06/19 Encounter Start Time: 10:30 Subjective: pt up in bed no complains - Objective Resuscitation Status - Order Detail: 12/30/18 01:03 Resuscitation Status Routine Resuscitation Status: FULL: Full Resuscitation Vital Signs & Weight: Vital Signs (12 hours) Temp Pulse Resp BP Pulse Ox 01/06/19 08:49 54 L 01/06/19 08:00 97.8 F 54 L 17 152/70 H 94 L 01/06/19 03:51 97.9 F 54 L 18 163/72 H 92 L Weight Weight 147 lb 3.2 oz I&O: 01/05/19 01/06/19 01/07/19 06:59 06:59 06:59 Intake Total 1140 1010 Output Total 800 1900 Balance 340 -890 Result Diagrams: 01/05/19 10:38 01/05/19 10:38 Additional Labs: Accuchecks 01/06/19 01/06/19 01/05/19 11:12 05:24 20:23 POC Glucose 140 H 102 136 H 01/05/19 17:00 POC Glucose 98 Phys Exam - Physical Examination Neck: no nodes, no JVD, supple, full ROM Respiratory: no wheezing, no rales, no rhonchi, wheezing present, clear to auscultation bilateral Cardiovascular: RRR, no significant murmur, no rub, gallop, irregular Gastrointestinal: soft, non-tender, no distention, positive bowel sounds Musculoskeletal: no edema, pulses present, edema present Dx/Plan (1) Acute worsening of stage 4 chronic kidney disease Code(s): N18.4 - CHRONIC KIDNEY DISEASE, STAGE 4 (SEVERE) Status: Acute Comment: creatinine stabilizing, may need dialysis (2) nstemi type 2 Status: Acute Comment: stable (3) DM type 2 (diabetes mellitus, type 2) Status: Chronic (4) HTN (hypertension) Code(s): I10 - ESSENTIAL (PRIMARY) HYPERTENSION Status: Chronic Comment: BP improved - Plan waiting on dialysis set up -: nausea has resolved. will continue meds. 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 Review of Systems - Review of Systems Respiratory: negative: Cough, Dry, Shortness of Breath, Hemoptysis, SOB with Excertion, Pleuritic Pain, Sputum, Wheezing Cardiovascular: negative: chest pain, palpitations, orthopnea, paroxysmal nocturnal dyspnea, edema, light headedness, other Gastrointestinal: negative: Nausea, Vomiting, Abdominal Pain, Diarrhea, Constipation, Melena, Hematochezia, Other - Medications/Allergies Allergies/Adverse Reactions: Allergies Allergy/AdvReac Type Severity Reaction Status Date / Time liraglutide [From Victoza] Allergy Verified 12/30/18 01:32 Penicillins Allergy Verified 12/30/18 01:32 Medications: Current Medications Acetaminophen (Tylenol) 1,000 mg PO Q6H PRN PRN Reason: Moderate to Severe Pain (6-10) Last Admin: 01/06/19 08:47 Dose: 1,000 mg Amlodipine Besylate (Norvasc) 5 mg PO BID [facility] Last Admin: 01/06/19 08:49 Dose: 5 mg Aspirin (Ecotrin) 325 mg PO DAILY [facility] Last Admin: 01/06/19 08:49 Dose: 325 mg Bisacodyl (Dulcolax) 10 mg [place] DAILYPRN PRN PRN Reason: Constipation Clonidine (Catapres) 0.1 mg PO Q4H PRN PRN Reason: SBP > ____ Last Admin: 01/05/19 18:39 Dose: 0.1 mg Dextrose/Water (Dextrose 50%) 25 gm SLOW IVP PRN PRN PRN Reason: Hypoglycemia Last Admin: 01/03/19 05:36 Dose: 25 gm Famotidine (Pepcid) 20 mg PO DAILY [facility] Last Admin: 01/06/19 08:47 Dose: 20 mg Furosemide (Lasix) 40 mg PO DAILY [facility] Last Admin: 01/06/19 08:47 Dose: 40 mg Glucagon (Glucagon) 1 mg IM PRN PRN PRN Reason: Hypoglycemia Heparin Sodium (Porcine) (Heparin) 5,000 units SC BID [facility] Last Admin: 01/06/19 08:49 Dose: 5,000 units Hydralazine HCl (Apresoline) 10 mg SLOW IVP Q4H PRN PRN Reason: SBP > 180 and HR < 70 Last Admin: 01/02/19 04:05 Dose: 10 mg Hydralazine HCl (Apresoline) 25 mg PO TID [facility] Last Admin: 01/06/19 08:49 Dose: 25 mg Dextrose/Water (D5w) 1,000 mls @ 0 mls/hr IV .Q0M PRN PRN Reason: Hypoglycemia Levofloxacin 500 mg/ Device 100 mls @ 100 mls/hr IVPB ONCALL-OR [facility] Insulin Glargine 10 units/ (Miscellaneous Medication) 0.1 mls @ 0 mls/hr SC QAM [facility] Last Admin: 01/06/19 08:49 Dose: 0.1 mls Insulin Human Lispro (Humalog) 0 units SC .MODERATE SLIDING SC PRN PRN Reason: Moderate Correctional Scale Last Admin: 01/02/19 17:30 Dose: 4 unit Insulin Human Lispro (Humalog) 0 units SC .BEDTIME SLIDING SC PRN PRN Reason: Bedtime Correctional Scale Last Admin: 12/31/18 21:34 Dose: 2 unit Metoprolol Tartrate (Lopressor) 100 mg PO BID [facility] Last Admin: 01/06/19 08:47 Dose: 100 mg Morphine Sulfate (Morphine) 4 mg SLOW IVP Q4H PRN PRN Reason: Pain Last Admin: 01/06/19 01:56 Dose: 4 mg Ondansetron HCl (Zofran) 4 mg IVP Q6H PRN PRN Reason: Nausea/Vomiting Last Admin: 01/04/19 08:47 Dose: 4 mg Polyethylene Glycol (Miralax) 17 gm PO DAILY [facility] Last Admin: 01/06/19 08:48 Dose: Not Given Senna/Docusate Sodium (Senokot S) 2 tab PO BID [facility] Last Admin: 01/06/19 08:49 Dose: 2 tab Sodium Chloride (Flush - Normal Saline) 10 ml IVF Q12HR [facility] Last Admin: 01/06/19 08:50 Dose: 10 ml Sodium Chloride (Flush - Normal Saline) 10 ml IVF PRN PRN PRN Reason: Saline Flush Tramadol HCl (Ultram) 50 mg PO Q6H PRN PRN Reason: Pain 1-5 Last Admin: 01/06/19 01:06 Dose: 50 mg
[2019-01-06] MEDS: cloNIDine 0.1 MG TAB PO PRN (15:29)
[2019-01-06] MEDS ORDERED: cloNIDine 0.1 MG TAB PO SCH (17:30)
[2019-01-06] MEDS: cloNIDine 0.1 MG TAB PO SCH (20:50)
[2019-01-06] MEDS: Metoprolol Tartrate 50 MG TAB PO SCH (20:52)
[2019-01-07] MEDS: traMADol HCl 50 MG TAB PO PRN ×2 (01:45→10:20)
[2019-01-07 05:20] LABS: #Basophils 0.1 thou/uL (0.0-0.2); #Eosinphils 0.2 thou/uL (0.0-0.7); #Lymphocytes 1.8 thou/uL (1.20-3.40); #Monocytes 0.8 thou/uL (0.11-0.59); #Neutrophils 7.6 thou/uL (1.40-6.50); %Basophils 0.7 % (0.0-1.0); %Eosinophils 1.7 % (0.0-10.0); %Neutrophils 72.5 % (42.0-75.0); Hemoglobin 7.8 g/dL (12.0-16.0); Mean Corpuscular HGB CONC 32.4 g/dL (32.0-36.0); Mean Corpuscular Hemoglobin 25.1 pg (27.0-31.0); Mean Corpuscular Volume 77.4 fL (78.0-98.0); Mean Platelet Volume 11.1 fL (7.4-10.4); Platelet Count 232 thou/uL (130-400); RBC Distribution Width 18.5 % (11.5-14.5); Red Blood Cell (RBC) Count 3.12 mill/uL (4.20-5.40); White Blood Cell (WBC) Count 10.4 thou/uL (4.8-10.8)
[2019-01-07 07:55] VITALS: TEMP 98.2
[2019-01-07] MEDS: Famotidine 20 MG TAB PO SCH (08:36)
[2019-01-07] MEDS: cloNIDine 0.1 MG TAB PO SCH (08:36)
[2019-01-07] MEDS: Metoprolol Tartrate 50 MG TAB PO SCH (08:37)
[2019-01-07] MEDS: hydrALAZINE 25 MG TAB PO SCH (08:37)
[2019-01-07] MEDS: Senokot S 8.6-50 MG TAB PO SCH (08:37)
[2019-01-07] MEDS: Aspirin 325 mg Enteric Coated Tablet PO SCH (08:38)
[2019-01-07] MEDS: Heparin 5,000 UNITS/ML VIAL SC SCH (08:38)
[2019-01-07] MEDS: Furosemide 40 MG TAB PO SCH (08:38)
[2019-01-07] MEDS: Polyethylene Glycol 3350 17 GM Packet PO SCH (08:38)
[2019-01-07] MEDS: Insulin Glargine 10 UNITS in Pre-Filled Syringe 1 EACH SC SCH (08:39)
[2019-01-07] MEDS ORDERED: Amlodipine 10 MG TAB PO SCH (09:00)
[2019-01-07 11:15] VITALS: BP 154/70
--- NOTE | 2019-01-07 16:46 | PRG ---
DATE OF SERVICE: 01/07/2019 SUBJECTIVE: Patient was seen and examined at bedside and overnight events noted. Patient denies any shortness of breath or chest pain or palpitation. No history of nausea or vomiting or diarrhea or fever or chills or cramps. OBJECTIVE: GENERAL: This is a well-built female, in no apparent distress. VITAL SIGNS: Temperature 97.5. Heart rate . Respiratory rate 18. Blood pressure 154/67. HEENT: Atraumatic, normocephalic. Oral mucosa is moist NECK: Supple. CARDIOVASCULAR: S1, S2 heard. Rate and rhythm regular. RESPIRATORY: Clear to auscultation. GASTROINTESTINAL: Abdomen is soft. MUSCULOSKELETAL: No tenderness. No edema. DERMATOLOGIC: No skin rash. NEUROLOGIC: Alert and awake and oriented X3. No focal neurologic deficits. Moving all the extremities. PSYCHIATRIC: Mood and affect normal. LABORATORY DATA: Not done today. ASSESSMENT AND PLAN: 1. End-stage renal disease. Continue on dialysis as tolerated. . 2. Anemia, monitor hemoglobin. 3. Edema. 4. Hypertension, titrate medications. 5. Diabetic nephropathy. 6. Proteinuria. Continue on dialysis as tolerated. Job ID: [id number]
--- NOTE | 2019-01-08 03:22 | DIS ---
DATE OF ADMISSION: 12/30/2018 DATE OF DISCHARGE: 01/07/2019 DISCHARGE DIAGNOSES: As of the followin. Acute worsening stage IV kidney disease. 2. [id number] myocardial infarction, type 2. 3. Diabetes. 4. Hypertension. 5. Anemia. HOSPITAL COURSE: The patient is a very pleasant 73-year-old female with a history of diabetes, chronic kidney disease, and hypertension, who presented to the hospital for having some tightness in her chest. The patient at this time stated that she was being treated for bronchitis with antibiotics. However, after taking a dose, she started having diarrhea and vomiting and did not feel well. Upon arrival, the patient was found to have a creatinine of 7.7, and at this time, Nephrology was consulted for further evaluation. The patient underwent emergent dialysis and also was seen by surgery for her grafting of her fistula. She also was seen by Cardiology and underwent an echocardiogram, which indicated an EF of 55% to 60%, which indicated a mild tricuspid regurgitation, mild to moderate concentric left ventricular hypertrophy. Her elevated troponins were considered by Cardiology most likely secondary to demand related. Throughout the hospital stay, the patient's blood pressure was titrated. The patient had no leukocytosis, and no antibiotics were continued. She continued to improve throughout the hospital stay. She will be discharged home. Her dialysis has been set up. DISCHARGE MEDICATIONS: 1. Norvasc 10 mg daily. 2. Aspirin 81 mg daily. 3. Metoprolol 50 mg b.i.d. 4. Clonidine 0.1 b.i.d. 5. Hydralazine 50 t.i.d. 6. Ultram 50 q.6 h. p.r.n. 7. Lasix 40 mg daily. 8. Insulin 10 units in the morning and 5 units at night. 9. NovoLog 5 units before meals 4 times a day. PHYSICAL EXAMINATION: VITAL SIGNS: Temperature of 98.2, heart rate of 64, blood pressure 150/70, respirations 18, and 94% on room air. GENERAL: She is awake, alert, and oriented x3. She does not appear in distress. CV: S1, S2 present. No murmurs, rubs, or gallops. ABDOMEN: Soft and nontender. Bowel sounds are present x2. DISCHARGE DISPOSITION: Again, the patient is stable. She will follow up outpatient with Nephrology and also with Surgery. Job ID: [id number]
== END 2019-01-07 11:24 | disposition home or self-care (01) | DRG 673 ==
LOC: ERS 20:03 → 2NO 12-30 00:44
PROVIDERS: ADMIT Family Medicine; ATTEND Family Medicine
PROC: 031C09F Bypass Left Radial Artery to Lower Arm Vein with Autologous Venous Tissue, Open Approach (ICD-10-PCS; principal; 2019-01-03)
PROC: 05B80ZZ Excision of Left Axillary Vein, Open Approach (ICD-10-PCS; 2019-01-03)
PROC: 05BF0ZZ Excision of Left Cephalic Vein, Open Approach (ICD-10-PCS; 2019-01-03)
PROC: 05JY0ZZ Inspection of Upper Vein, Open Approach (ICD-10-PCS; 2019-01-03)
PROC: 0JH63XZ Insertion of Tunneled Vascular Access Device into Chest Subcutaneous Tissue and Fascia, Percutaneous Approach (ICD-10-PCS; 2019-01-03)
PROC: 02HV33Z Insertion of Infusion Device into Superior Vena Cava, Percutaneous Approach (ICD-10-PCS; 2019-01-03)
PROC: 02H633Z Insertion of Infusion Device into Right Atrium, Percutaneous Approach (ICD-10-PCS; 2019-01-03)
PROC: 5A1D70Z Performance of Urinary Filtration, Intermittent, Less than 6 Hours Per Day (ICD-10-PCS; 2019-01-03)
PROC: 5A1D70Z Performance of Urinary Filtration, Intermittent, Less than 6 Hours Per Day (ICD-10-PCS; 2019-01-05)
DX: N17.9 Acute kidney failure, unspecified (principal); I21.A1 Myocardial infarction type 2; K52.1 Toxic gastroenteritis and colitis; I12.0 Hypertensive chronic kidney disease with stage 5 chronic kidney disease or end stage renal disease; I82.611 Acute embolism and thrombosis of superficial veins of right upper extremity; T82.868A Thrombosis due to vascular prosthetic devices, implants and grafts, initial encounter; I12.9 Hypertensive chronic kidney disease with stage 1 through stage 4 chronic kidney disease, or unspecified chronic kidney disease; Z88.0 Allergy status to penicillin; I16.0 Hypertensive urgency; N18.6 End stage renal disease; D63.1 Anemia in chronic kidney disease; E11.649 Type 2 diabetes mellitus with hypoglycemia without coma; E11.21 Type 2 diabetes mellitus with diabetic nephropathy; T36.0X5A Adverse effect of penicillins, initial encounter; Z88.8 Allergy status to other drugs, medicaments and biological substances; Z79.82 Long term (current) use of aspirin; Z79.899 Other long term (current) drug therapy; Y84.8 Other medical procedures as the cause of abnormal reaction of the patient, or of later complication, without mention of misadventure at the time of the procedure; Y92.230 Patient room in hospital as the place of occurrence of the external cause
CPT/HCPCS: 36415; 36416; 36430; 71045; 76770; 80048; 80053; 80061; 82553; 82565; 82570; 82728; 83540; 83550; 83883; 84156; 84300; 84484; 85014; 85018; 85025; 85049; 86038; 86225; 86334; 86335; 86580; 86704; 86706; 86803; 86850; 86900; 86901; 87340; 90935; 93306; 93970; 94760; 96361; 96374; C1752; C1769; G0257; G0365; J0360; J0670; J1642; J1644; J1825; J1940; J1956; J2001; J2250; J2270; J2405; J2704; J2720; J3010; J3490; L8670; P9016; Q5105

== ENCOUNTER 2019-01-10 19:58 | Emergency (ER) | payer MEDICARE ==
[2019-01-10 21:37] LABS: Hemoglobin 8.9 g/dL (12.0-16.0); Mean Corpuscular HGB CONC 31.5 g/dL (32.0-36.0); Mean Corpuscular Hemoglobin 24.1 pg (27.0-31.0); Mean Corpuscular Volume 76.5 fL (78.0-98.0); Platelet Count 279 thou/uL (130-400); RBC Distribution Width 19.1 % (11.5-14.5); White Blood Cell (WBC) Count 12.5 thou/uL (4.8-10.8)
[2019-01-10 21:52] LABS: #Basophils 0.1 thou/uL (0.0-0.2); #Eosinphils 0.2 thou/uL (0.0-0.7); #Lymphocytes 1.4 thou/uL (1.20-3.40); #Neutrophils 9.9 thou/uL (1.40-6.50); %Basophils 0.9 % (0.0-1.0); %Eosinophils 1.4 % (0.0-10.0); %Monocytes 7.6 % (0.0-10.0); %Neutrophils 79.1 % (42.0-75.0); ALT (SGPT) 555 U/L (8-55); AST (SGOT) 256 U/L (5-34); Alkaline Phosphatase 97 U/L (40-150); Anion Gap 14 mmol/L (10-20); Anisocytosis SLIGHT = 6-15 cells (100X) (0-5/hpf); BUN (Urea Nitrogen) 25 mg/dL (9.8-20.1); Bilirubin, Total 0.3 mg/dL (0.2-1.2); Calc. Creatinine Clearance 0 mL/min (70-130); Calcium 7.9 mg/dL (7.8-10.44); Carbon Dioxide 32 mmol/L (23-31); Chloride 89 mmol/L (98-107); Estimated GFR-MDRD 13; Globulin 3.4 g/dL (2.4-3.5); Glucose 209 mg/dL (83-110); Hypochromia SLIGHT = 6-15 cells (100X) (0-5/hpf); MDiff Complete? YES; Microcytosis SLIGHT = 6-15 cells (100X) (0-5/hpf); Potassium 4.2 mmol/L (3.5-5.1); Protein, Total 6.4 g/dL (6.0-8.3); Sodium 131 mmol/L (136-145)
[2019-01-10 23:10] LABS: CKMB 6.7 ng/mL (0-6.6)
== END 2019-01-10 23:15 | disposition home or self-care (01) ==
LOC: ERS 19:58
DX: M79.89 Other specified soft tissue disorders (principal); E11.9 Type 2 diabetes mellitus without complications; I10 Essential (primary) hypertension; Z79.899 Other long term (current) drug therapy
CPT/HCPCS: 36415; 80053; 82550; 82553; 83690; 83880; 84484; 85025; 93005